=== PATIENT | female | born 1960 | race Caucasian/White ===

== ENCOUNTER → 2021-11-13 09:48 | Outpatient (CLI) | payer OTHER, SELFPAY ==
--- NOTE | 2021-11-13 | DI.MG.S_ITS ---
BILATERAL DIGITAL SCREENING MAMMOGRAM 3D/2D WITH CAD: 11/13/2021 CLINICAL: Routine screening. Comparison is made to exams dated: 10/21/2018 mammogram, 09/17/2017 mammogram, and 07/31/2016 mammogram - outside location. The tissue of both breasts is predominantly fatty. Current study was also evaluated with a Computer Aided Detection (CAD) system. No significant masses, calcifications, or other findings are seen in either breast. There has been no significant interval change. IMPRESSION: NEGATIVE There is no mammographic evidence of malignancy. A 1 year screening mammogram is recommended. This exam was interpreted at Station ID: [id number]. NOTE: For mammograms, a report in lay terms will be sent to the patient. Approximately 15% of breast malignancies will not be visualized mammographically. In the management of a palpable breast mass, a negative mammogram must not discourage biopsy of a clinically suspicious lesion. Electronically Signed By: Luis Carlos Echavarria acr/penrad:11/13/2021 10:31:31 copy to: ERIC GIBSON letter sent: Normal Exam ACR BI-RADS Category 1: Negative [id number]
== END ==
PROVIDERS: PCP Family Medicine; Referring Provider Specialist; Visit Provider Specialist
DX: Z12.31 Encounter for screening mammogram for malignant neoplasm of breast (principal)
CPT/HCPCS: 77063; 77067

== ENCOUNTER → 2022-12-06 09:45 | Outpatient (CLI) | payer OTHER, SELFPAY ==
--- NOTE | 2022-12-06 09:46 | DI.MG.S_ITS ---
BILATERAL DIGITAL SCREENING MAMMOGRAM 3D/2D WITH CAD: 12/06/2022 CLINICAL: Routine screening. Comparison is made to exams dated: 11/13/2021 mammogram - [facility], 10/21/2018 mammogram, and 09/17/2017 mammogram - outside location. There are scattered areas of fibroglandular density in both breasts (category b / 25%-50% glandular tissue). Current study was also evaluated with a Computer Aided Detection (CAD) system. No significant masses, calcifications, or other findings are seen in either breast. There has been no significant interval change. IMPRESSION: NEGATIVE There is no mammographic evidence of malignancy. A 1 year screening mammogram is recommended. Based on the Tyrer Cuzick model (a risk assessment model) the patient's lifetime risk is 8.5% and her 10 year risk is 3.8%. According to the ACR, ACS, and NCCN guidelines, an annual breast MRI exam along with mammogram is recommended if the patient's lifetime risk is 20% or greater. This exam was interpreted at Station ID: [id number]. NOTE: For mammograms, a report in lay terms will be sent to the patient. Approximately 15% of breast malignancies will not be visualized mammographically. In the management of a palpable breast mass, a negative mammogram must not discourage biopsy of a clinically suspicious lesion. Electronically Signed By: Dick jaimes/chuck:12/06/2022 14:32:40 copy to: ERIC GIBSON letter sent: Normal Exam ACR BI-RADS Category 1: Negative [id number]
== END ==
PROVIDERS: PCP Family Medicine; Referring Provider Family Medicine; Visit Provider Family Medicine
DX: Z12.31 Encounter for screening mammogram for malignant neoplasm of breast (principal)
CPT/HCPCS: 77063; 77067

== ENCOUNTER → 2023-12-15 11:27 | Outpatient (CLI) | payer OTHER, SELFPAY ==
--- NOTE | 2023-12-15 11:31 | DI.RAD.S_ITS ---
PROCEDURE: XR HIP W PEL IF DONE LT 2V INDICATIONS: Left hip pain TECHNIQUE: 2 views of the hip were acquired. COMPARISON: None. FINDINGS: Bones: No fractures or dislocations. No suspicious bony lesions. The visualized pelvic ring appears intact. Mild degenerative changes of the lower lumbar spine and bilateral SI joints. Soft tissues: No suspicious soft tissue calcifications or masses. IMPRESSION: 1. No acute bony abnormality. If there is high clinical suspicion for a radiographically occult fracture, recommend cross-sectional imaging for further evaluation. 2. Mild bilateral hip osteoarthritis, symmetric. Dictated by: Yasir Lopes M.D. on 12/15/2023 at 19:58 Approved by: Yasir Lopes M.D. on 12/15/2023 at 19:59
== END ==
LOC: DI 11:30
PROVIDERS: Family Provider Family Medicine; PCP Family Medicine; Referring Provider Nurse Practitioner Family; Visit Provider Nurse Practitioner Family
DX: M16.0 Bilateral primary osteoarthritis of hip (principal); M25.552 Pain in left hip
CPT/HCPCS: 73502

== ENCOUNTER → 2024-02-08 07:56 | Outpatient (CLI) | payer OTHER, SELFPAY ==
--- NOTE | 2024-02-08 07:56 | DI.MG.S_ITS ---
BILATERAL DIGITAL SCREENING MAMMOGRAM 3D/2D WITH CAD: 02/08/2024 CLINICAL: Routine screening. Family history of breast cancer. Comparison is made to exams dated: 12/06/2022 mammogram, 11/13/2021 mammogram - [facility], and 10/21/2018 mammogram - outside location. There are scattered areas of fibroglandular density in both breasts (category b / 25%-50% glandular tissue). Current study was also evaluated with a Computer Aided Detection (CAD) system. No significant masses, calcifications, or other findings are seen in either breast. There has been no significant interval change. IMPRESSION: NEGATIVE There is no mammographic evidence of malignancy. A 1 year screening mammogram is recommended. Based on the Tyrer Cuzick model (a risk assessment model) the patient's lifetime risk is 7.9% and her 10 year risk is 3.8%. According to the ACR, ACS, and NCCN guidelines, an annual breast MRI exam along with mammogram is recommended if the patient's lifetime risk is 20% or greater. This exam was interpreted at Station ID: [id number]. NOTE: For mammograms, a report in lay terms will be sent to the patient. Approximately 15% of breast malignancies will not be visualized mammographically. In the management of a palpable breast mass, a negative mammogram must not discourage biopsy of a clinically suspicious lesion. Electronically Signed By: Modesta Jones M.D., Ph.D. alyssa/chuck:02/10/2024 22:02:37 copy to: ERIC GIBSON letter sent: Normal Exam ACR BI-RADS Category 1: Negative [id number]
== END ==
LOC: MAMMO 07:56
PROVIDERS: Family Provider Family Medicine; PCP Family Medicine; Referring Provider Family Medicine; Visit Provider Family Medicine
DX: Z12.31 Encounter for screening mammogram for malignant neoplasm of breast (principal); Z80.3 Family history of malignant neoplasm of breast; R92.323 Mammographic fibroglandular density, bilateral breasts
CPT/HCPCS: 77063; 77067

== ENCOUNTER 2024-02-27 09:45 | Outpatient (RCR) | payer OTHER, SELFPAY ==
--- NOTE | 2023-12-12 17:53 | PT.OIE ---
Current Diagnoses Low back pain, unspecified (12/12/23) Muscle weakness (generalized) (12/12/23) Abnormal posture (12/12/23) Past Medical History (Last Updated 01/29/22 @ 14:36 by Thierno Wilhelm MD) Depression Hypertension Visit Care Team Role Provider Type Thierno Wilhelm MD Family Provider Physician Primary Care Provider Specialty: [facility] Practice Address: [address] [place] [address], [id number] Email: [email or web address] YANNA Elmore Attending Provider Advanced Cupola Charger Insulation Referring Provider Specialty: [facility] Address: [address] [place] [address], [address] Phone: Fax: Email: [email or web address] [facility] Initial Evaluation PT-OP-A Visit Information Start: 12/12/23 08:12 Freq: Status: Active Protocol: Document 12/12/23 08:20 LRN (Rec: 12/12/23 09:11 LRN [id number]) Out-Patient Physical Therapy Visit Information Visit Information Visit Type Initial Evaluation Visit Start Time 08:20 Visit Stop Time 09:08 Visit Number 1 Evaluation Information Evaluation Date 12/12/23 Precautions Precautions Depression controlled by meds. PT-OP-B Current Condition Start: 12/12/23 08:12 Freq: Status: Active Protocol: Document 12/12/23 08:20 LRN (Rec: 12/12/23 09:11 LRN [id number]) Current Condition History of Current Condition Onset Date 1 month ago Current Complaints Constant pn down the lateral LLE, worse in sitting, better standing/walking History of Current Condition Pt states she woke in the middle of the night with the L posterior deep hip pain that was pressent intermittently; then 3 wks later during the night she felt the pain down the lateral LLE that she states feels like a constant tera horse. Yesterday the pain became constant. She has been taking IBP (works at [employer]) every other day but doesn't feel it is helpful. She is now taking ms relaxors that helps her to get 3 hrs of sleep, then some sleep every hour. States it is more comfortable moving & walking rather than sitting. Prior Treatments and Tests IBP, now taking ms relaxors. Future Testing and Treatments Planned None Developmental History Developmental History Vaginal births: x 3, wo complications (reclined on birthing table). With first born child 30 yrs ago had R LE occasional pain. PMH: fx'd R lower leg above ankle age 50, L torn knee cartilage over 25 yrs ago. Treatment Goals Patient/Caregiver Goals Pt goal: Be able to sleep through the night. Be able to sit on plane ride to [facility] (6 hrs). Personal Factors Other Personal Factors That May Effect Depression controlled with Therapy/Recovery meds, works at a [employer] . 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 Pain Location Details L lateral hip joint anteriorly and posterior hip/gluteals Intensity 7 Scale Used Numeric (0 - 10) Description Aching,Sharp PT-OP-G Mobility & Gait Start: 12/12/23 08:12 Freq: Status: Active Protocol: Document 12/12/23 08:20 LRN (Rec: 12/12/23 09:11 LRN [id number]) OP Mobility Evaluation Bed Mobility Rolling L hip/LE pain rolling in bed Supine to and from Sit L hip/LE pain rolling in bed PT-OP-H Neuro Start: 12/12/23 08:12 Freq: Status: Active Protocol: Document 12/12/23 08:20 LRN (Rec: 12/12/23 09:11 LRN [id number]) Sensation Evaluation Gross Sensation Gross Sensation WNL Deep Tendon Reflex & Clonus Assessment Deep Tendon Reflex Bilateral Achilles Deep Tendon Reflex 0 Absent Right Patellar Deep Tendon Reflex 3+ Normal But Brisk Left Patellar Deep Tendon Reflex 2+ Normal PT-OP-J Posture/Palpation/Skin Start: 12/12/23 08:12 Freq: Status: Active Protocol: Document 12/12/23 08:20 LRN (Rec: 12/12/23 09:11 LR [id number]) Posture Evaluation Position Standing Head/C-Spine Posture Forward Head L-Spine Posture Increased Lordosis,Shifted Left Shoulder Posture (L) Elevated Arm Posture (L) Internally Rotated,(R) Internally Rotated Weight Distribution Weight Shifted Right Knee Posture (L) Genu Valgus,(R) Genu Valgus,(L) Genu Recurvatum Foot Arch (L) Medium Arch,(R) Low Arch Comments Posture Comments Dowagers hump, Flattened mid thoracic, mild C-curve lumbar spine w/apex on L, mild valgus of knees. Mild L Genu Recurvatum. Palpation Assessment Location LE's at ankles Palpation Location R LE: Sup>Long sit moves long > equal length. Palpation Details L LE: Sup> long sit moves short > equal length (L innom Posterior rot, R innom anterior rot). Supine: high L ASIS, L Ischial tuberosity is inferior (L innom Knitter Helper rot). Sacrum & trunk L rotated, L hip posterior ms - soft tissue tightness. PT-OP-K Range of Motion Start: 12/12/23 08:12 Freq: Status: Active Protocol: Document 12/12/23 08:20 LRN (Rec: 12/12/23 09:11 LR [id number]) Lumbar Spine Range of Motion Lumbar Spine Active Degrees Testing Position Standing Flexion 93 Extension 12 Rotation Left 15 Rotation Right 15 Lateral Flexion Left 15 Lateral Flexion Right 15 Comments Pain flexion Hip Goniometric Range of Motion Hip Right Passive Straight Leg Raise 100 Abduction 40 Internal Rotation 25 External Rotation 55 Left Passive Straight Leg Raise 90 Abduction 40 Internal Rotation 30 External Rotation 60 PT-OP-L Special Tests Start: 12/12/23 08:12 Freq: Status: Active Protocol: Document 12/12/23 08:20 LRN (Rec: 12/12/23 09:11 LR [id number]) Special Tests Lumbar Spine Special Tests Vertical Spine Loading Test Results - Slump Test Results 1 bilaterally Straight Leg Raise Test Results - bilaterally Compression Test Results - Hip Special Tests Leg Length Test Test Results + Distraction Test Test Results -LLE Lateral Compression Test Results - LLE Posterior Labral Test Test Results - Anterior Labral Test Test Results - Log Roll Test Test Results - LLE Stinchfield Resisted Hip Flexion Test Results + LLE ANDRZEJ Test Results + left LE PT-OP-M Strength Start: 12/12/23 08:12 Freq: Status: Active Protocol: Document 12/12/23 08:20 LRN (Rec: 12/12/23 09:11 LRN [id number]) Trunk Strength Trunk Manual Muscle Testing Flexion 3+ Fair+ Extension 3+ Fair+ Rotation Left 3+ Fair+ Rotation Right 3+ Fair+ Hip Strength Hip Manual Muscle Testing Right Comments Hip strength is 5/5. Left Flexion (L2) 3 Fair Abduction 4+ Good+ Internal Rotation 3 Fair Comments Hip strength is 5/5 except as indicated above. PT-OP-Q Treatments Start: 12/12/23 08:12 Freq: Status: Active Protocol: Document 12/12/23 08:20 LRN (Rec: 12/12/23 09:11 LRN [id number]) Manual Therapy Treatment Joint Mobilizations R innominate Joint MFR to correct R posteriorly rotated/L anteriorly rot innominate Direction Resisted hip AD & R hip flexion Body Position Supine Reps/Duration 3' Self-Care/Home Management Treatment Education Other Education Discussed results of evaluation, goals, and plan of care (POC) with pt, discussed attendance/cx/dns policy; pt agreeable to goals, attendance /cx/dns policy and POC. Activities Self-Care/Home Management Activities Verbal instructions given for self correction of pelvic obliquity of resisted hip flexion and education in self assesment of leg length difference. Pt I/S in proper posturing of equal weightbearing through LE 's in sitting and standing and with transfers. Pt given verbal I/S and visually shown posturing. PT-OP-T Assessment and Plan Start: 12/12/23 08:12 Freq: Status: Active Protocol: Document 12/12/23 08:20 LRN (Rec: 12/12/23 09:11 LRN [id number]) Physical Therapy Assessment Rehab Potential Rehabilitation Potential Good Evaluation Complexity Number of Personal Factors/Comorbidities 1-2 Number of Body Systems Impaired 4 or More Clinical Presentation at Evaluation Evolving Impairments Impairments Activity Tolerance,Functional Activities,Pain,Posture,ROM, Soft Tissue Mobility,Strength, Transfers Goals Three Impairment Pt is not able to tolerate sitting due to L sciatic pain Impairment Pelvic obliquity: L innom anterior rot/R innom posterior rot. Short Term Goal (STG) Pt will be educated in proper sitting posture with normal pelvic positioning (correct L innom anterior rot/R innom posterior rot). STG Duration 5 wks-01/17/24 Alf Goal (LTG) Pt will be able to sit for > 1 -2 hrs at a time to be able to tolerated a plane ride to [facility] (6 hrs). LTG Duration 12 wks-03/06/24 Two Impairment L Sciatic pain interrupting pt sleeping ability Impairment Pt was able to sleep through the night, 3-4 hrs at a time. Short Term Goal (STG) Pt will be educated in best practice positioning and posture corrections to relieve L sciatic pain. STG Duration 3 wks-01/03/24 Admin Asst Goal (LTG) Pt will be able to sleep 3-4 hrs through the night without interruptions due to L LE pain . LTG Duration 12 wks-03/06/24 One Impairment Pt lacks appropriate self care HEP. Short Term Goal (STG) Pt will be educated in log roll transfers, & proper body mechanics for ADLs. STG Duration 2 wks-12/27/23 Alf Goal (LTG) Pt will be independent in an effective self care HEP for pelvic/core/hip strengthening and mobility ex's. LTG Duration 12 wks-03/06/24 Assessment Summary Assessment Pt is a 63 yo female who presents with SIJ dysfunction (L innom anterior rot/R innom posterior rot) with pelvic instability, L sciatic pain, soft tissue tightness of L gluteal & L/S paraspinal L>R muscle, and decr'd core/hip strength. Transfers trng education is needed as well as correction of her pelvic obliquity and pt education in self assessment/treatment and program of stabilization and LE/trunk mobility and strengthening exercise. She may need gait training to correct gait mechanics after pelvic correction. The patient will benefit from skilled physical therapy to work towards achieving the above stated goals. Physical Therapy Plan Frequency and Duration Frequency of Treatment 2x/Week Duration of treatment (weeks) 12 Plan of Care Start Date 12/12/23 Plan of Care End Date 03/06/24 Therapeutic Interventions Therapeutic Interventions Home Exercise Program,Joint Mobilizations,Manual Therapy, Neuromuscular Re-education, Self-Care/Home Management,Soft Tissue Mobilization,Taping, Therapeutic Activities, Therapeutic Exercises Modalities Electric Stimulation Next Visit Focus/Plan Next Note Type Treatment Note Next Visit Plan Next: Assess Special Test: Moreno test. Assess response to correction of R innom post rot. If needed try correction for L innom anterior rot. Assess gait and transfer mechanics (wbing) and educate in log roll transfers, & proper body mechanics for ADLs . POC: Manual therapy/JMT to Normalize pelvic position and stabilize; correct sacral/ lumbar spine L rotation and stabilize; STM to normalize left hip and L>R L/S paraspinal ms tension, and improve core/hip strength. Modalities if needed for ms relaxation and pain management .
--- NOTE | 2023-12-12 17:56 | PT.OPPOC ---
Physical, Occupational & Speech Therapy At [facility] Current Diagnoses Low back pain, unspecified (12/12/23) Muscle weakness (generalized) (12/12/23) Abnormal posture (12/12/23) Visit Care Team Role Provider Type Thierno Wilhelm MD Family Provider Physician Primary Care Provider Specialty: [facility] Address: [address] [place] [address], [address] Email: [email or web address] YANNA Elmore Attending Provider Advanced Air Traffic Control Specialist Referring Provider Specialty: [facility] Address: [address] [place] [address], [place], [address] Phone: Fax: Email: [email or web address] Plan Of Care PT-OP-T Assessment and Plan Start: 12/12/23 08:12 Freq: Status: Active Protocol: Document 12/12/23 08:20 LRN (Rec: 12/12/23 09:11 LRN [id number]) Physical Therapy Assessment Rehab Potential Rehabilitation Potential Good Evaluation Complexity Number of Personal Factors/Comorbidities 1-2 Number of Body Systems Impaired 4 or More Clinical Presentation at Evaluation Evolving Impairments Impairments Activity Tolerance,Functional Activities,Pain,Posture,ROM, Soft Tissue Mobility,Strength, Transfers Goals Three Impairment Pt is not able to tolerate sitting due to L sciatic pain Impairment Pelvic obliquity: L innom anterior rot/R innom posterior rot. Short Term Goal (STG) Pt will be educated in proper sitting posture with normal pelvic positioning (correct L innom anterior rot/R innom posterior rot). STG Duration 5 wks-01/17/24 Paleology Teacher Goal (LTG) Pt will be able to sit for > 1 -2 hrs at a time to be able to tolerated a plane ride to [facility] (6 hrs). LTG Duration 12 wks-03/06/24 Two Impairment L Sciatic pain interrupting pt sleeping ability Impairment Pt was able to sleep through the night, 3-4 hrs at a time. Short Term Goal (STG) Pt will be educated in best practice positioning and posture corrections to relieve L sciatic pain. STG Duration 3 wks-01/03/24 Halfway Goal (LTG) Pt will be able to sleep 3-4 hrs through the night without interruptions due to L LE pain . LTG Duration 12 wks-03/06/24 One Impairment Pt lacks appropriate self care HEP. Short Term Goal (STG) Pt will be educated in log roll transfers, & proper body mechanics for ADLs. STG Duration 2 wks-12/27/23 Paleology Teacher Goal (LTG) Pt will be independent in an effective self care HEP for pelvic/core/hip strengthening and mobility ex's. LTG Duration 12 wks-03/06/24 Assessment Summary Assessment Pt is a 63 yo female who presents with SIJ dysfunction (L innom anterior rot/R innom posterior rot) with pelvic instability, L sciatic pain, soft tissue tightness of L gluteal & L/S paraspinal L>R muscle, and decr'd core/hip strength. Transfers trng education is needed as well as correction of her pelvic obliquity and pt education in self assessment/treatment and program of stabilization and LE/trunk mobility and strengthening exercise. She may need gait training to correct gait mechanics after pelvic correction. The patient will benefit from skilled physical therapy to work towards achieving the above stated goals. Physical Therapy Plan Frequency and Duration Frequency of Treatment 2x/Week Duration of treatment (weeks) 12 Plan of Care Start Date 12/12/23 Plan of Care End Date 03/06/24 Therapeutic Interventions Therapeutic Interventions Home Exercise Program,Joint Mobilizations,Manual Therapy, Neuromuscular Re-education, Self-Care/Home Management,Soft Tissue Mobilization,Taping, Therapeutic Activities, Therapeutic Exercises Modalities Electric Stimulation Next Visit Focus/Plan Next Note Type Treatment Note Next Visit Plan Next: Assess Special Test: Moreno test. Assess response to correction of R innom post rot. If needed try correction for L innom anterior rot. Assess gait and transfer mechanics (wbing) and educate in log roll transfers, & proper body mechanics for ADLs . POC: Manual therapy/JMT to Normalize pelvic position and stabilize; correct sacral/ lumbar spine L rotation and stabilize; STM to normalize left hip and L>R L/S paraspinal ms tension, and improve core/hip strength. Modalities if needed for ms relaxation and pain management . Plan of Care Dates Plan of Care Start Date 12/12/23 Plan of Care End Date 03/06/24 Electronically Signed by: Aniyah Miller, PT 12/13/231954 If you are in agreement with this Plan of Care, please return a signed and dated copy. I have reviewed this Plan of Care and certify that the skilled therapy services above are required to meet the patient?s needs. Physician Signature Date Printed Name and Credentials Clinical Instructor Signature Printed Name and Credentials
--- NOTE | 2023-12-17 16:14 | PT.OTN ---
Current Diagnoses Low back pain, unspecified (12/17/23) Muscle weakness (generalized) (12/17/23) Abnormal posture (12/17/23) Physical Therapy Treatment Note PT-OP-A Visit Information Start: 12/12/23 08:12 Freq: Status: Active Protocol: Document 12/17/23 13:03 LRN (Rec: 12/17/23 13:53 LRN [id number]) Out-Patient Physical Therapy Visit Information Visit Information Visit Type Treatment Note Visit Start Time 13:03 Visit Stop Time 13:50 Visit Number 2 Evaluation Information Evaluation Date 12/12/23 Precautions Precautions Depression controlled by meds. PT-OP-B Current Condition Start: 12/12/23 08:12 Freq: Status: Active Protocol: Document 12/12/23 08:20 LRN (Rec: 12/12/23 09:11 LRN [id number]) Current Condition History of Current Condition Onset Date 1 month ago Current Complaints Constant pn down the lateral LLE, worse in sitting, better standing/walking History of Current Condition Pt states she woke in the middle of the night with the L posterior deep hip pain that was pressent intermittently; then 3 wks later during the night she felt the pain down the lateral LLE that she states feels like a constant tera horse. Yesterday the pain became constant. She has been taking IBP (works at [employer]) every other day but doesn't feel it is helpful. She is now taking ms relaxors that helps her to get 3 hrs of sleep, then some sleep every hour. States it is more comfortable moving & walking rather than sitting. Prior Treatments and Tests IBP, now taking ms relaxors. Future Testing and Treatments Planned None Developmental History Developmental History Vaginal births: x 3, wo complications (reclined on birthing table). With first born child 30 yrs ago had R LE occasional pain. PMH: fx'd R lower leg above ankle age 50, L torn knee cartilage over 25 yrs ago. Treatment Goals Patient/Caregiver Goals Pt goal: Be able to sleep through the night. Be able to sit on plane ride to [facility] (6 hrs). Personal Factors Other Personal Factors That May Effect Depression controlled with Therapy/Recovery meds, works at a [employer] . PT-OP-C Subjective Start: 12/12/23 08:12 Freq: Status: Active Protocol: Document 12/17/23 13:03 LRN (Rec: 12/17/23 13:53 LRN [id number]) OP-PT Subjective Patient Comments Patient Comments Worse, can't get sleep, max is 3 hrs, then hourly. Trying not to sleep on stomach (prone holds head to left). LLB painful. Has been sleeping on R side normally w/pillow between knees. PT-OP-G Mobility & Gait Start: 12/12/23 08:12 Freq: Status: Active Protocol: Document 12/12/23 08:20 LRN (Rec: 12/12/23 09:11 LRN [id number]) OP Mobility Evaluation Bed Mobility Rolling L hip/LE pain rolling in bed Supine to and from Sit L hip/LE pain rolling in bed PT-OP-H Neuro Start: 12/12/23 08:12 Freq: Status: Active Protocol: Document 12/12/23 08:20 LRN (Rec: 12/12/23 09:11 LRN [id number]) Sensation Evaluation Gross Sensation Gross Sensation WNL Deep Tendon Reflex & Clonus Assessment Deep Tendon Reflex Bilateral Achilles Deep Tendon Reflex 0 Absent Right Patellar Deep Tendon Reflex 3+ Normal But Brisk Left Patellar Deep Tendon Reflex 2+ Normal PT-OP-J Posture/Palpation/Skin Start: 12/12/23 08:12 Freq: Status: Active Protocol: Document 12/12/23 08:20 LRN (Rec: 12/12/23 09:11 LRN [id number]) Posture Evaluation Position Standing Head/C-Spine Posture Forward Head L-Spine Posture Increased Lordosis,Shifted Left Shoulder Posture (L) Elevated Arm Posture (L) Internally Rotated,(R) Internally Rotated Weight Distribution Weight Shifted Right Knee Posture (L) Genu Valgus,(R) Genu Valgus,(L) Genu Recurvatum Foot Arch (L) Medium Arch,(R) Low Arch Comments Posture Comments Dowagers hump, Flattened mid thoracic, mild C-curve lumbar spine w/apex on L, mild valgus of knees. Mild L Genu Recurvatum. Palpation Assessment Location LE's at ankles Palpation Location R LE: Sup>Long sit moves long > equal length. Palpation Details L LE: Sup> long sit moves short > equal length (L innom Posterior rot, R innom anterior rot). Supine: high L ASIS, L Ischial tuberosity is inferior (L innom Plant Electrician rot). Sacrum & trunk L rotated, L hip posterior ms - soft tissue tightness. PT-OP-K Range of Motion Start: 12/12/23 08:12 Freq: Status: Active Protocol: Document 12/12/23 08:20 LRN (Rec: 12/12/23 09:11 LRN [id number]) Lumbar Spine Range of Motion Lumbar Spine Active Degrees Testing Position Standing Flexion 93 Extension 12 Rotation Left 15 Rotation Right 15 Lateral Flexion Left 15 Lateral Flexion Right 15 Comments Pain flexion Hip Goniometric Range of Motion Hip Right Passive Straight Leg Raise 100 Abduction 40 Internal Rotation 25 External Rotation 55 Left Passive Straight Leg Raise 90 Abduction 40 Internal Rotation 30 External Rotation 60 PT-OP-L Special Tests Start: 12/12/23 08:12 Freq: Status: Active Protocol: Document 12/17/23 13:03 LRN (Rec: 12/17/23 16:14 LRN [id number]) Special Tests Hip Special Tests Moreno Test Results + bilateral Comments Mild hip flexor tightness bilaterally. PT-OP-M Strength Start: 12/12/23 08:12 Freq: Status: Active Protocol: Document 12/12/23 08:20 LRN (Rec: 12/12/23 09:11 LRN [id number]) Trunk Strength Trunk Manual Muscle Testing Flexion 3+ Fair+ Extension 3+ Fair+ Rotation Left 3+ Fair+ Rotation Right 3+ Fair+ Hip Strength Hip Manual Muscle Testing Right Comments Hip strength is 5/5. Left Flexion (L2) 3 Fair Abduction 4+ Good+ Internal Rotation 3 Fair Comments Hip strength is 5/5 except as indicated above. PT-OP-Q Treatments Start: 12/12/23 08:12 Freq: Status: Active Protocol: Document 12/17/23 13:03 LRN (Rec: 12/17/23 13:53 LRN [id number]) Therapeutic Exercises Supine Exercises TA heel slides Supine Exercise Name Pt palpating ASIS' to identify when loss of holding contraction Side bilateral Reps/Minutes 10' Comments Cued pt with PT hand under LB and v cuing given. TA tightening Supine Exercise Name Pt palpating ASIS' to identify when loss of holding contraction Reps/Minutes 10' Comments Cued that L TA was not holding and fatigues quicker Sidelying Exercises TA/Clamshell Side bilateral Reps/Minutes 10x each Comments Extra time taken for trng to obtain core stability w/leg lift Standing Exercises Hip flexor stretch Standing Exercise Name Knee on stool: much phys cuing for level A/P positioning of ASIS and PPT Side bilateral Reps/Minutes 8' Comments Extra time needed to obtain max tolerated & appropriate stretch Therapeutic Activity Therapeutic Activity Rolling Name TA tight w/Rolling side<>side Reps/Minutes 2' Comments Phys & v cuing needed to remind pt with rolling. Nighttime positioning Name [place] position training Reps/Minutes 8' Comments Sidelie: Cued pt put pillows for full support to leg (not just to knee) PT-OP-T Assessment and Plan Start: 12/12/23 08:12 Freq: Status: Active Protocol: Document 12/17/23 13:03 LRN (Rec: 12/17/23 13:53 LRN [id number]) Physical Therapy Assessment Goals Three Impairment Pt is not able to tolerate sitting due to L sciatic pain Impairment Pelvic obliquity: L innom anterior rot/R innom posterior rot. Short Term Goal (STG) Pt will be educated in proper sitting posture with normal pelvic positioning (correct L innom anterior rot/R innom posterior rot). 12/17/23: Supine correction of rotated L innominate. STG Duration 5 wks-01/17/24 progressed 05/31 Loan Servicing Specialist Goal (LTG) Pt will be able to sit for > 1 -2 hrs at a time to be able to tolerated a plane ride to [facility] (6 hrs). LTG Duration 12 wks-03/06/24 Two Impairment L Sciatic pain interrupting pt sleeping ability Impairment Pt was able to sleep through the night, 3-4 hrs at a time. Short Term Goal (STG) Pt will be educated in best practice positioning and posture corrections to relieve L sciatic pain. 12/17/23: Pt educated in best practice positioning for nighttime sleeping position. STG Duration 3 wks-01/03/24 progressed (need educ posture sitting/standing) Fdc Goal (LTG) Pt will be able to sleep 3-4 hrs through the night without interruptions due to L LE pain . LTG Duration 12 wks-03/06/24 One Impairment Pt lacks appropriate self care HEP. Short Term Goal (STG) Pt will be educated in log roll transfers, & proper body mechanics for ADLs. 12/17/23: Pt educted rolling in bed side<>side with core stabilized (TA tight). STG Duration 2 wks-12/27/23 progressed 12/17/23 Fdc Goal (LTG) Pt will be independent in an effective self care HEP for pelvic/core/hip strengthening and mobility ex's. 12/17/23: HEP: core stab of supine TA tight, TA/heel slide ; TA clamshell, & standing Iliopsoas stretch. LTG Duration 12 wks-03/06/24 progressed 12/17/23 Assessment Summary Assessment Pt is a 63 yo female who presented w/SIJ dysfunction (L innom anterior rot/R innom posterior rot) & pelvic instability, L sciatic pain, soft tissue tightness of L gluteal & L/S paraspinal L>R muscle, and decr'd core/hip strength. Today pt innominates are level to start . Fairly good understanding of ex's, but not able to stabilize core with heel slides and clamshell. Further core stab needed. Physical Therapy Plan Frequency and Duration Frequency of Treatment 2x/Week Duration of treatment (weeks) 12 Plan of Care Start Date 12/12/23 Plan of Care End Date 03/06/24 Next Visit Focus/Plan Next Note Type Treatment Note Next Visit Plan Next: If needed correction for L innom anterior rot. Assess gait and transfer mechanics (wbing) and educate in log roll transfers, & proper body mechanics for ADLs . POC: Manual therapy/JMT to Normalize pelvic position and stabilize; correct sacral/ lumbar spine L rotation and stabilize; STM to normalize left hip, improve hip flexor mobility and L>R L/S paraspinal ms tension, and improve core/hip strength. Modalities if needed for ms relaxation and pain management .
--- NOTE | 2023-12-17 16:17 | PT.OTN ---
Current Diagnoses Low back pain, unspecified (12/17/23) Muscle weakness (generalized) (12/17/23) Abnormal posture (12/17/23) Physical Therapy Treatment Note PT-OP-A Visit Information Start: 12/12/23 08:12 Freq: Status: Active Protocol: Document 12/17/23 13:03 LRN (Rec: 12/17/23 13:53 LRN [id number]) Out-Patient Physical Therapy Visit Information Visit Information Visit Type Treatment Note Visit Start Time 13:03 Visit Stop Time 13:50 Visit Number 2 Evaluation Information Evaluation Date 12/12/23 Precautions Precautions Depression controlled by meds. PT-OP-B Current Condition Start: 12/12/23 08:12 Freq: Status: Active Protocol: Document 12/12/23 08:20 LRN (Rec: 12/12/23 09:11 LRN [id number]) Current Condition History of Current Condition Onset Date 1 month ago Current Complaints Constant pn down the lateral LLE, worse in sitting, better standing/walking History of Current Condition Pt states she woke in the middle of the night with the L posterior deep hip pain that was pressent intermittently; then 3 wks later during the night she felt the pain down the lateral LLE that she states feels like a constant tera horse. Yesterday the pain became constant. She has been taking IBP (works at [employer]) every other day but doesn't feel it is helpful. She is now taking ms relaxors that helps her to get 3 hrs of sleep, then some sleep every hour. States it is more comfortable moving & walking rather than sitting. Prior Treatments and Tests IBP, now taking ms relaxors. Future Testing and Treatments Planned None Developmental History Developmental History Vaginal births: x 3, wo complications (reclined on birthing table). With first born child 30 yrs ago had R LE occasional pain. PMH: fx'd R lower leg above ankle age 50, L torn knee cartilage over 25 yrs ago. Treatment Goals Patient/Caregiver Goals Pt goal: Be able to sleep through the night. Be able to sit on plane ride to [facility] (6 hrs). Personal Factors Other Personal Factors That May Effect Depression controlled with Therapy/Recovery meds, works at a [employer] . PT-OP-C Subjective Start: 12/12/23 08:12 Freq: Status: Active Protocol: Document 12/17/23 13:03 LRN (Rec: 12/17/23 13:53 LRN [id number]) OP-PT Subjective Patient Comments Patient Comments Worse, can't get sleep, max is 3 hrs, then hourly. Trying not to sleep on stomach (prone holds head to left). LLB painful. Has been sleeping on R side normally w/pillow between knees. PT-OP-G Mobility & Gait Start: 12/12/23 08:12 Freq: Status: Active Protocol: Document 12/12/23 08:20 LRN (Rec: 12/12/23 09:11 LRN [id number]) OP Mobility Evaluation Bed Mobility Rolling L hip/LE pain rolling in bed Supine to and from Sit L hip/LE pain rolling in bed PT-OP-H Neuro Start: 12/12/23 08:12 Freq: Status: Active Protocol: Document 12/12/23 08:20 LRN (Rec: 12/12/23 09:11 LRN [id number]) Sensation Evaluation Gross Sensation Gross Sensation WNL Deep Tendon Reflex & Clonus Assessment Deep Tendon Reflex Bilateral Achilles Deep Tendon Reflex 0 Absent Right Patellar Deep Tendon Reflex 3+ Normal But Brisk Left Patellar Deep Tendon Reflex 2+ Normal PT-OP-J Posture/Palpation/Skin Start: 12/12/23 08:12 Freq: Status: Active Protocol: Document 12/12/23 08:20 LRN (Rec: 12/12/23 09:11 LRN [id number]) Posture Evaluation Position Standing Head/C-Spine Posture Forward Head L-Spine Posture Increased Lordosis,Shifted Left Shoulder Posture (L) Elevated Arm Posture (L) Internally Rotated,(R) Internally Rotated Weight Distribution Weight Shifted Right Knee Posture (L) Genu Valgus,(R) Genu Valgus,(L) Genu Recurvatum Foot Arch (L) Medium Arch,(R) Low Arch Comments Posture Comments Dowagers hump, Flattened mid thoracic, mild C-curve lumbar spine w/apex on L, mild valgus of knees. Mild L Genu Recurvatum. Palpation Assessment Location LE's at ankles Palpation Location R LE: Sup>Long sit moves long > equal length. Palpation Details L LE: Sup> long sit moves short > equal length (L innom Posterior rot, R innom anterior rot). Supine: high L ASIS, L Ischial tuberosity is inferior (L innom Communications Marketing Intern rot). Sacrum & trunk L rotated, L hip posterior ms - soft tissue tightness. PT-OP-K Range of Motion Start: 12/12/23 08:12 Freq: Status: Active Protocol: Document 12/12/23 08:20 LRN (Rec: 12/12/23 09:11 LRN [id number]) Lumbar Spine Range of Motion Lumbar Spine Active Degrees Testing Position Standing Flexion 93 Extension 12 Rotation Left 15 Rotation Right 15 Lateral Flexion Left 15 Lateral Flexion Right 15 Comments Pain flexion Hip Goniometric Range of Motion Hip Right Passive Straight Leg Raise 100 Abduction 40 Internal Rotation 25 External Rotation 55 Left Passive Straight Leg Raise 90 Abduction 40 Internal Rotation 30 External Rotation 60 PT-OP-L Special Tests Start: 12/12/23 08:12 Freq: Status: Active Protocol: Document 12/17/23 13:03 LRN (Rec: 12/17/23 16:14 LRN [id number]) Special Tests Hip Special Tests Moreno Test Results + bilateral Comments Mild hip flexor tightness bilaterally. PT-OP-M Strength Start: 12/12/23 08:12 Freq: Status: Active Protocol: Document 12/12/23 08:20 LRN (Rec: 12/12/23 09:11 LRN [id number]) Trunk Strength Trunk Manual Muscle Testing Flexion 3+ Fair+ Extension 3+ Fair+ Rotation Left 3+ Fair+ Rotation Right 3+ Fair+ Hip Strength Hip Manual Muscle Testing Right Comments Hip strength is 5/5. Left Flexion (L2) 3 Fair Abduction 4+ Good+ Internal Rotation 3 Fair Comments Hip strength is 5/5 except as indicated above. PT-OP-Q Treatments Start: 12/12/23 08:12 Freq: Status: Active Protocol: Document 12/17/23 13:03 LRN (Rec: 12/17/23 13:53 LRN [id number]) Therapeutic Exercises Supine Exercises TA heel slides Supine Exercise Name Pt palpating ASIS' to identify when loss of holding contraction Side bilateral Reps/Minutes 10' Comments Cued pt with PT hand under LB and v cuing given. TA tightening Supine Exercise Name Pt palpating ASIS' to identify when loss of holding contraction Reps/Minutes 10' Comments Cued that L TA was not holding and fatigues quicker Sidelying Exercises TA/Clamshell Side bilateral Reps/Minutes 10x each Comments Extra time taken for trng to obtain core stability w/leg lift Standing Exercises Hip flexor stretch Standing Exercise Name Knee on stool: much phys cuing for level A/P positioning of ASIS and PPT Side bilateral Reps/Minutes 8' Comments Extra time needed to obtain max tolerated & appropriate stretch Therapeutic Activity Therapeutic Activity Rolling Name TA tight w/Rolling side<>side Reps/Minutes 2' Comments Phys & v cuing needed to remind pt with rolling. Nighttime positioning Name [place] position training Reps/Minutes 8' Comments Sidelie: Cued pt put pillows for full support to leg (not just to knee) Self-Care/Home Management Treatment Education Patient Education Home Exercise Program Activities Self-Care/Home Management Activities Issued & reviewed HEP: TA, TA clamshell, TA heel slides, standing hip flexor stretch. PT-OP-T Assessment and Plan Start: 12/12/23 08:12 Freq: Status: Active Protocol: Document 12/17/23 13:03 LRN (Rec: 12/17/23 13:53 LRN [id number]) Physical Therapy Assessment Goals Three Impairment Pt is not able to tolerate sitting due to L sciatic pain Impairment Pelvic obliquity: L innom anterior rot/R innom posterior rot. Short Term Goal (STG) Pt will be educated in proper sitting posture with normal pelvic positioning (correct L innom anterior rot/R innom posterior rot). 12/17/23: Supine correction of rotated L innominate. STG Duration 5 wks-01/17/24 progressed 05/31 Tablet Tester Goal (LTG) Pt will be able to sit for > 1 -2 hrs at a time to be able to tolerated a plane ride to [facility] (6 hrs). LTG Duration 12 wks-03/06/24 Two Impairment L Sciatic pain interrupting pt sleeping ability Impairment Pt was able to sleep through the night, 3-4 hrs at a time. Short Term Goal (STG) Pt will be educated in best practice positioning and posture corrections to relieve L sciatic pain. 12/17/23: Pt educated in best practice positioning for nighttime sleeping position. STG Duration 3 wks-01/03/24 progressed (need educ posture sitting/standing) [facility] Goal (LTG) Pt will be able to sleep 3-4 hrs through the night without interruptions due to L LE pain . LTG Duration 12 wks-03/06/24 One Impairment Pt lacks appropriate self care HEP. Short Term Goal (STG) Pt will be educated in log roll transfers, & proper body mechanics for ADLs. 12/17/23: Pt educted rolling in bed side<>side with core stabilized (TA tight). STG Duration 2 wks-12/27/23 progressed 12/17/23 Tablet Tester Goal (LTG) Pt will be independent in an effective self care HEP for pelvic/core/hip strengthening and mobility ex's. 12/17/23: HEP: core stab of supine TA tight, TA/heel slide ; TA clamshell, & standing Iliopsoas stretch. LTG Duration 12 wks-03/06/24 progressed 12/17/23 Assessment Summary Assessment Pt is a 63 yo female who presented w/SIJ dysfunction (L innom anterior rot/R innom posterior rot) & pelvic instability, L sciatic pain, soft tissue tightness of L gluteal & L/S paraspinal L>R muscle, and decr'd core/hip strength. Today pt innominates are level to start . Fairly good understanding of ex's, but not able to stabilize core with heel slides and clamshell. Further core stab needed. Physical Therapy Plan Frequency and Duration Frequency of Treatment 2x/Week Duration of treatment (weeks) 12 Plan of Care Start Date 12/12/23 Plan of Care End Date 03/06/24 Next Visit Focus/Plan Next Note Type Treatment Note Next Visit Plan Next: If needed correction for L innom anterior rot. Assess gait and transfer mechanics (wbing) and educate in log roll transfers, & proper body mechanics for ADLs . POC: Manual therapy/JMT to Normalize pelvic position and stabilize; correct sacral/ lumbar spine L rotation and stabilize; STM to normalize left hip, improve hip flexor mobility and L>R L/S paraspinal ms tension, and improve core/hip strength. Modalities if needed for ms relaxation and pain management .
--- NOTE | 2023-12-19 13:48 | PT.OTN ---
Current Diagnoses Low back pain, unspecified (12/19/23) Muscle weakness (generalized) (12/19/23) Abnormal posture (12/19/23) Physical Therapy Treatment Note PT-OP-A Visit Information Start: 12/12/23 08:12 Freq: Status: Active Protocol: Document 12/19/23 13:02 LRN (Rec: 12/19/23 13:47 LRN [id number]) Out-Patient Physical Therapy Visit Information Visit Information Visit Type Treatment Note Visit Start Time 13:02 Visit Stop Time 13:43 Visit Number 3 Evaluation Information Evaluation Date 12/12/23 Precautions Precautions Depression controlled by meds. PT-OP-B Current Condition Start: 12/12/23 08:12 Freq: Status: Active Protocol: Document 12/12/23 08:20 LRN (Rec: 12/12/23 09:11 LRN [id number]) Current Condition History of Current Condition Onset Date 1 month ago Current Complaints Constant pn down the lateral LLE, worse in sitting, better standing/walking History of Current Condition Pt states she woke in the middle of the night with the L posterior deep hip pain that was pressent intermittently; then 3 wks later during the night she felt the pain down the lateral LLE that she states feels like a constant tera horse. Yesterday the pain became constant. She has been taking IBP (works at [employer]) every other day but doesn't feel it is helpful. She is now taking ms relaxors that helps her to get 3 hrs of sleep, then some sleep every hour. States it is more comfortable moving & walking rather than sitting. Prior Treatments and Tests IBP, now taking ms relaxors. Future Testing and Treatments Planned None Developmental History Developmental History Vaginal births: x 3, wo complications (reclined on birthing table). With first born child 30 yrs ago had R LE occasional pain. PMH: fx'd R lower leg above ankle age 50, L torn knee cartilage over 25 yrs ago. Treatment Goals Patient/Caregiver Goals Pt goal: Be able to sleep through the night. Be able to sit on plane ride to [facility] (6 hrs). Personal Factors Other Personal Factors That May Effect Depression controlled with Therapy/Recovery meds, works at a [employer] . PT-OP-C Subjective Start: 12/12/23 08:12 Freq: Status: Active Protocol: Document 12/19/23 13:02 LRN (Rec: 12/19/23 13:47 LRN [id number]) OP-PT Subjective Patient Comments Patient Comments Yesterday was prescribed GAbapentin and taken off ms relaxor. Slept well last night and woke due to bladder. Hurt and had to stretch before going back to bed and woke in R sidelie with L LBP. PT-OP-G Mobility & Gait Start: 12/12/23 08:12 Freq: Status: Active Protocol: Document 12/12/23 08:20 LRN (Rec: 12/12/23 09:11 LRN [id number]) OP Mobility Evaluation Bed Mobility Rolling L hip/LE pain rolling in bed Supine to and from Sit L hip/LE pain rolling in bed PT-OP-H Neuro Start: 12/12/23 08:12 Freq: Status: Active Protocol: Document 12/12/23 08:20 LRN (Rec: 12/12/23 09:11 LRN [id number]) Sensation Evaluation Gross Sensation Gross Sensation WNL Deep Tendon Reflex & Clonus Assessment Deep Tendon Reflex Bilateral Achilles Deep Tendon Reflex 0 Absent Right Patellar Deep Tendon Reflex 3+ Normal But Brisk Left Patellar Deep Tendon Reflex 2+ Normal PT-OP-J Posture/Palpation/Skin Start: 12/12/23 08:12 Freq: Status: Active Protocol: Document 12/12/23 08:20 LRN (Rec: 12/12/23 09:11 LRN [id number]) Posture Evaluation Position Standing Head/C-Spine Posture Forward Head L-Spine Posture Increased Lordosis,Shifted Left Shoulder Posture (L) Elevated Arm Posture (L) Internally Rotated,(R) Internally Rotated Weight Distribution Weight Shifted Right Knee Posture (L) Genu Valgus,(R) Genu Valgus,(L) Genu Recurvatum Foot Arch (L) Medium Arch,(R) Low Arch Comments Posture Comments Dowagers hump, Flattened mid thoracic, mild C-curve lumbar spine w/apex on L, mild valgus of knees. Mild L Genu Recurvatum. Palpation Assessment Location LE's at ankles Palpation Location R LE: Sup>Long sit moves long > equal length. Palpation Details L LE: Sup> long sit moves short > equal length (L innom Posterior rot, R innom anterior rot). 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 Sacrum & trunk L rotated, L hip posterior ms - soft tissue tightness. PT-OP-K Range of Motion Start: 12/12/23 08:12 Freq: Status: Active Protocol: Document 12/12/23 08:20 LRN (Rec: 12/12/23 09:11 LRN [id number]) Lumbar Spine Range of Motion Lumbar Spine Active Degrees Testing Position Standing Flexion 93 Extension 12 Rotation Left 15 Rotation Right 15 Lateral Flexion Left 15 Lateral Flexion Right 15 Comments Pain flexion Hip Goniometric Range of Motion Hip Right Passive Straight Leg Raise 100 Abduction 40 Internal Rotation 25 External Rotation 55 Left Passive Straight Leg Raise 90 Abduction 40 Internal Rotation 30 External Rotation 60 PT-OP-L Special Tests Start: 12/12/23 08:12 Freq: Status: Active Protocol: Document 12/17/23 13:03 LRN (Rec: 12/17/23 16:14 LRN [id number]) Special Tests Hip Special Tests Moreno Test Results + bilateral Comments Mild hip flexor tightness bilaterally. PT-OP-M Strength Start: 12/12/23 08:12 Freq: Status: Active Protocol: Document 12/12/23 08:20 LRN (Rec: 12/12/23 09:11 LRN [id number]) Trunk Strength Trunk Manual Muscle Testing Flexion 3+ Fair+ Extension 3+ Fair+ Rotation Left 3+ Fair+ Rotation Right 3+ Fair+ Hip Strength Hip Manual Muscle Testing Right Comments Hip strength is 5/5. Left Flexion (L2) 3 Fair Abduction 4+ Good+ Internal Rotation 3 Fair Comments Hip strength is 5/5 except as indicated above. PT-OP-Q Treatments Start: 12/12/23 08:12 Freq: Status: Active Protocol: Document 12/19/23 13:02 LRN (Rec: 12/19/23 13:47 LRN [id number]) Therapeutic Exercises Supine Exercises DKTC stretch Supine Exercise Name Verbal I/S. TA/hector BKFO Equipment Used Lev 2 TB Reps/Minutes 15x TA/bridge Supine Exercise Name Neutral spine positioning/TA/ bridge Reps/Minutes 10x Comments Pt needed rest after lifts due to ms cramping in R LE. TA heel slides Supine Exercise Name Pt palpating ASIS' to identify when loss of holding contraction Side bilateral Reps/Minutes 10' Comments Cued pt with PT hand under LB and v cuing given. Sidelying Exercises TA/Clamshell Side left Equipment Used Dowel behind SIJ's Reps/Minutes 10x, 5x each (10') Comments Extra time for trng keping core stable w/leg lift Sitting Exercises TA/Hector BKFO Equipment Used Lev 1 TB Reps/Minutes 15x Self-Care/Home Management Treatment Education Other Education Pt educated in proper sit posture with equal sitting on sit bones. Educated pt in equal wbing through LE's on sit<>stand. Activities Self-Care/Home Management Activities Issued HEP: SI dyfunction phase I (correction and stab with bridge and DKTC), and Progressive stability/core strengthening of 1. Pelvic Brace, 2. Knee out, 3.Leg slide. Lev 2 TB issued for HEP> PT-OP-T Assessment and Plan Start: 12/12/23 08:12 Freq: Status: Active Protocol: Document 12/19/23 13:02 LRN (Rec: 12/19/23 13:47 LRN [id number]) Physical Therapy Assessment Goals Three Impairment Pt is not able to tolerate sitting due to L sciatic pain Impairment Pelvic obliquity: L innom anterior rot/R innom posterior rot. Short Term Goal (STG) Pt will be educated in proper sitting posture with normal pelvic positioning (correct L innom anterior rot/R innom posterior rot). 12/17/23: Supine correction of rotated L innominate. 12/19/23: Pt self corrected L innomate rotation. Pt educated in proper sit posturing with normal pelvic positioning. STG Duration 5 wks-01/17/24 (12/19/23: MET GOAL) Shelter Goal (LTG) Pt will be able to sit for > 1 -2 hrs at a time to be able to tolerated a plane ride to [facility] (6 hrs). LTG Duration 12 wks-03/06/24 Two Impairment L Sciatic pain interrupting pt sleeping ability Impairment Pt was able to sleep through the night, 3-4 hrs at a time. Short Term Goal (STG) Pt will be educated in best practice positioning and posture corrections to relieve L sciatic pain. 12/17/23: Pt educated in best practice positioning for nighttime sleeping position. STG Duration 3 wks-01/03/24 progressed (need educ posture sitting/standing) Food Mixer Repairer Goal (LTG) Pt will be able to sleep 3-4 hrs through the night without interruptions due to L LE pain . 12/19/23: Pt able to sleep through the night w/o pain ( except for waking for bladder) after starting Gabapentin medication LTG Duration 12 wks-03/06/24 progressing 12/19/23 One Impairment Pt lacks appropriate self care HEP. Short Term Goal (STG) Pt will be educated in log roll transfers, & proper body mechanics for ADLs. 12/17/23: Pt educted rolling in bed side<>side with core stabilized (TA tight). STG Duration 2 wks-12/27/23 progressed 12/17/23 Food Mixer Repairer Goal (LTG) Pt will be independent in an effective self care HEP for pelvic/core/hip strengthening and mobility ex's. 12/17/23: HEP: core stab of supine TA tight, TA/heel slide ; TA clamshell, & standing Iliopsoas stretch. 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 Today she is reporting sleeping through the night, possibly due to new med of Gabapentin. She is self correcting her SIJ dysfunction and shows good understanding of new HEP. Physical Therapy Plan Frequency and Duration Frequency of Treatment 2x/Week Duration of treatment (weeks) 12 Plan of Care Start Date 12/12/23 Plan of Care End Date 03/06/24 Next Visit Focus/Plan Next Note Type Treatment Note Next Visit Plan If needed correction for L innom anterior rot. Next: Assess gait and transfer mechanics (wbing) and educate in log roll transfers, & proper body mechanics for ADLs . POC: Manual therapy/JMT to Normalize pelvic position and stabilize; correct sacral/ lumbar spine L rotation and stabilize; STM to normalize left hip, improve hip flexor mobility and L>R L/S paraspinal ms tension, and improve core/hip strength. Modalities if needed for ms relaxation and pain management .
--- NOTE | 2024-01-01 09:49 | PT.OTN ---
Current Diagnoses Low back pain, unspecified (01/01/24) Muscle weakness (generalized) (01/01/24) Abnormal posture (01/01/24) Physical Therapy Treatment Note PT-OP-A Visit Information Start: 12/12/23 08:12 Freq: Status: Active Protocol: Document 01/01/24 08:04 AB (Rec: 01/01/24 09:47 AB [id number]) Out-Patient Physical Therapy Visit Information Visit Information Visit Type Treatment Note Visit Number 4 Number of DINING SERVICE WORKER Visits 1 Evaluation Information Evaluation Date 12/12/23 Precautions Precautions Depression controlled by meds. PT-OP-B Current Condition Start: 12/12/23 08:12 Freq: Status: Active Protocol: Document 12/12/23 08:20 LRN (Rec: 12/12/23 09:11 LRN [id number]) Current Condition History of Current Condition Onset Date 1 month ago Current Complaints Constant pn down the lateral LLE, worse in sitting, better standing/walking History of Current Condition Pt states she woke in the middle of the night with the L posterior deep hip pain that was pressent intermittently; then 3 wks later during the night she felt the pain down the lateral LLE that she states feels like a constant tera horse. Yesterday the pain became constant. She has been taking IBP (works at [employer]) every other day but doesn't feel it is helpful. She is now taking ms relaxors that helps her to get 3 hrs of sleep, then some sleep every hour. States it is more comfortable moving & walking rather than sitting. Prior Treatments and Tests IBP, now taking ms relaxors. Future Testing and Treatments Planned None Developmental History Developmental History Vaginal births: x 3, wo complications (reclined on birthing table). With first born child 30 yrs ago had R LE occasional pain. PMH: fx'd R lower leg above ankle age 50, L torn knee cartilage over 25 yrs ago. Treatment Goals Patient/Caregiver Goals Pt goal: Be able to sleep through the night. Be able to sit on plane ride to [facility] (6 hrs). Personal Factors Other Personal Factors That May Effect Depression controlled with Therapy/Recovery meds, works at a [employer] . PT-OP-C Subjective Start: 12/12/23 08:12 Freq: Status: Active Protocol: Document 01/01/24 08:04 AB (Rec: 01/01/24 09:47 AB [id number]) OP-PT Subjective Patient Comments Patient Comments Patient reports she is better, comments that she believes it is from the Gabapentin. Patient comments the right foot feels off, weak when wearing flip flops. PROM limited for left hip ER. left AI right PI start of session PT-OP-G Mobility & Gait Start: 12/12/23 08:12 Freq: Status: Active Protocol: Document 12/12/23 08:20 LRN (Rec: 12/12/23 09:11 LRN [id number]) OP Mobility Evaluation Bed Mobility Rolling L hip/LE pain rolling in bed Supine to and from Sit L hip/LE pain rolling in bed PT-OP-H Neuro Start: 12/12/23 08:12 Freq: Status: Active Protocol: Document 12/12/23 08:20 LRN (Rec: 12/12/23 09:11 LRN [id number]) Sensation Evaluation Gross Sensation Gross Sensation WNL Deep Tendon Reflex & Clonus Assessment Deep Tendon Reflex Bilateral Achilles Deep Tendon Reflex 0 Absent Right Patellar Deep Tendon Reflex 3+ Normal But Brisk Left Patellar Deep Tendon Reflex 2+ Normal PT-OP-J Posture/Palpation/Skin Start: 12/12/23 08:12 Freq: Status: Active Protocol: Document 12/12/23 08:20 LRN (Rec: 12/12/23 09:11 LRN [id number]) Posture Evaluation Position Standing Head/C-Spine Posture Forward Head L-Spine Posture Increased Lordosis,Shifted Left Shoulder Posture (L) Elevated Arm Posture (L) Internally Rotated,(R) Internally Rotated Weight Distribution Weight Shifted Right Knee Posture (L) Genu Valgus,(R) Genu Valgus,(L) Genu Recurvatum Foot Arch (L) Medium Arch,(R) Low Arch Comments Posture Comments Dowagers hump, Flattened mid thoracic, mild C-curve lumbar spine w/apex on L, mild valgus of knees. Mild L Genu Recurvatum. Palpation Assessment Location LE's at ankles Palpation Location R LE: Sup>Long sit moves long > equal length. Palpation Details L LE: Sup> long sit moves short > equal length (L innom Posterior rot, R innom anterior rot). 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 Sacrum & trunk L rotated, L hip posterior ms - soft tissue tightness. PT-OP-K Range of Motion Start: 12/12/23 08:12 Freq: Status: Active Protocol: Document 12/12/23 08:20 LRN (Rec: 12/12/23 09:11 LRN [id number]) Lumbar Spine Range of Motion Lumbar Spine Active Degrees Testing Position Standing Flexion 93 Extension 12 Rotation Left 15 Rotation Right 15 Lateral Flexion Left 15 Lateral Flexion Right 15 Comments Pain flexion Hip Goniometric Range of Motion Hip Right Passive Straight Leg Raise 100 Abduction 40 Internal Rotation 25 External Rotation 55 Left Passive Straight Leg Raise 90 Abduction 40 Internal Rotation 30 External Rotation 60 PT-OP-L Special Tests Start: 12/12/23 08:12 Freq: Status: Active Protocol: Document 12/17/23 13:03 LRN (Rec: 12/17/23 16:14 LRN [id number]) Special Tests Hip Special Tests Moreno Test Results + bilateral Comments Mild hip flexor tightness bilaterally. PT-OP-M Strength Start: 12/12/23 08:12 Freq: Status: Active Protocol: Document 12/12/23 08:20 LRN (Rec: 12/12/23 09:11 LRN [id number]) Trunk Strength Trunk Manual Muscle Testing Flexion 3+ Fair+ Extension 3+ Fair+ Rotation Left 3+ Fair+ Rotation Right 3+ Fair+ Hip Strength Hip Manual Muscle Testing Right Comments Hip strength is 5/5. Left Flexion (L2) 3 Fair Abduction 4+ Good+ Internal Rotation 3 Fair Comments Hip strength is 5/5 except as indicated above. PT-OP-Q Treatments Start: 12/12/23 08:12 Freq: Status: Active Protocol: Document 01/01/24 08:04 AB (Rec: 01/01/24 09:47 AB [id number]) Therapeutic Exercises Supine Exercises Modified Moreno stretch Side left Reps/Minutes one minute X 1 with AROM knee flexion Comments Verbal cues for LE position, and to piriformis stretch Side left Reps/Minutes one minute X 1 Comments verbal and tactile cues figure 4 stretch Side left Reps/Minutes one minute X 2 Comments verbal and tactile cues DKTC stretch Reps/Minutes X3 for 10 breaths Comments verbal cues for breathing from diaphragm TA/bridge Supine Exercise Name Neutral spine positioning/TA/ bridge Reps/Minutes X10 Comments verbal cues for bracing Sitting Exercises figure 4 stretch Side left Reps/Minutes one minute X 1 Comments verbal cues Therapeutic Activity Therapeutic Activity sit to stand Reps/Minutes X5 Comments Pt ed use of self tactile cues for hip hinge. Rolling Name Log roll Comments Verbal cues to align hip and shoulder, performed from left and right side Manual Therapy Treatment Consent Patient gave verbal consent for manual Yes treatment Soft Tissue Mobilization left LS paraspinals, glute/piriformis and hip flexor at groin. Mobilization Type Cross-Friction,Rolling, Sustained Pressure Intensity/Depth Moderate Body Position Hooklying Comments and sidelying monitored for pain performed prior to stretches and MET Manual Techniques MET for left AI right PI Type resisted hip add hip flexed resisted ext left Reps/Duration 3 seconds 3 X each PT-OP-T Assessment and Plan Start: 12/12/23 08:12 Freq: Status: Active Protocol: Document 01/01/24 08:04 AB (Rec: 01/01/24 09:47 AB [id number]) Physical Therapy Assessment Goals Three Impairment Pt is not able to tolerate sitting due to L sciatic pain Impairment Pelvic obliquity: L innom anterior rot/R innom posterior rot. Short Term Goal (STG) Pt will be educated in proper sitting posture with normal pelvic positioning (correct L innom anterior rot/R innom posterior rot). 12/17/23: Supine correction of rotated L innominate. 12/19/23: Pt self corrected L innomate rotation. Pt educated in proper sit posturing with normal pelvic positioning. STG Duration 5 wks-01/17/24 (12/19/23: MET GOAL) Shelter Goal (LTG) Pt will be able to sit for > 1 -2 hrs at a time to be able to tolerated a plane ride to [facility] (6 hrs). LTG Duration 12 wks-03/06/24 Two Impairment L Sciatic pain interrupting pt sleeping ability Impairment Pt was able to sleep through the night, 3-4 hrs at a time. Short Term Goal (STG) Pt will be educated in best practice positioning and posture corrections to relieve L sciatic pain. 12/17/23: Pt educated in best practice positioning for nighttime sleeping position. STG Duration 3 wks-01/03/24 progressed (need educ posture sitting/standing) Shelter Goal (LTG) Pt will be able to sleep 3-4 hrs through the night without interruptions due to L LE pain . 12/19/23: Pt able to sleep through the night w/o pain ( except for waking for bladder) after starting Gabapentin medication LTG Duration 12 wks-03/06/24 progressing 12/19/23 One Impairment Pt lacks appropriate self care HEP. Short Term Goal (STG) Pt will be educated in log roll transfers, & proper body mechanics for ADLs. 12/17/23: Pt educted rolling in bed side<>side with core stabilized (TA tight). 01/01/2024 Reviews log roll continued cues to avoid twisting and to relax head on pillow STG Duration 2 wks-12/27/23 progressed 12/17/23 Shelter Goal (LTG) Pt will be independent in an effective self care HEP for pelvic/core/hip strengthening and mobility ex's. 12/17/23: HEP: core stab of supine TA tight, TA/heel slide ; TA clamshell, & standing Iliopsoas stretch. 12/19/23: HEP: nando BKFO w/TB , and SIJ dyfunction phase I, added TA/bridge and DKTC LTG Duration 12 wks-03/06/24 progressed 12/19/23 Assessment Summary Assessment Mariam into session with left AI right PI, with equal LE length in hooklying post. Good return demonstration for log roll, but does require verbal cues. Patient reports she feels the same end of session. Physical Therapy Plan Frequency and Duration Frequency of Treatment 2x/Week Duration of treatment (weeks) 12 Plan of Care Start Date 12/12/23 Plan of Care End Date 03/06/24 Next Visit Focus/Plan Next Note Type Treatment Note Next Visit Plan If needed correction for L innom anterior rot. Next: Assess gait and transfer mechanics (wbing) and continue ed and review in log roll transfers, & proper body mechanics for ADLs. POC: Manual therapy/JMT to Normalize pelvic position and stabilize; correct sacral/ lumbar spine L rotation and stabilize; STM to normalize left hip, improve hip flexor mobility and L>R L/S paraspinal ms tension, and improve core/hip strength. Modalities if needed for ms relaxation and pain management .
--- NOTE | 2024-01-03 17:13 | PT.OTN ---
Current Diagnoses Low back pain, unspecified (01/03/24) Muscle weakness (generalized) (01/03/24) Abnormal posture (01/03/24) Physical Therapy Treatment Note PT-OP-A Visit Information Start: 12/12/23 08:12 Freq: Status: Active Protocol: Document 01/03/24 08:18 LRN (Rec: 01/03/24 09:01 LRN [id number]) Out-Patient Physical Therapy Visit Information Visit Information Visit Type Treatment Note Visit Start Time 08:15 Visit Stop Time 08:55 Visit Number 5 Evaluation Information Evaluation Date 12/12/23 Precautions Precautions Depression controlled by meds. PT-OP-B Current Condition Start: 12/12/23 08:12 Freq: Status: Active Protocol: Document 12/12/23 08:20 LRN (Rec: 12/12/23 09:11 LRN [id number]) Current Condition History of Current Condition Onset Date 1 month ago Current Complaints Constant pn down the lateral LLE, worse in sitting, better standing/walking History of Current Condition Pt states she woke in the middle of the night with the L posterior deep hip pain that was pressent intermittently; then 3 wks later during the night she felt the pain down the lateral LLE that she states feels like a constant tera horse. Yesterday the pain became constant. She has been taking IBP (works at [employer]) every other day but doesn't feel it is helpful. She is now taking ms relaxors that helps her to get 3 hrs of sleep, then some sleep every hour. States it is more comfortable moving & walking rather than sitting. Prior Treatments and Tests IBP, now taking ms relaxors. Future Testing and Treatments Planned None Developmental History Developmental History Vaginal births: x 3, wo complications (reclined on birthing table). With first born child 30 yrs ago had R LE occasional pain. PMH: fx'd R lower leg above ankle age 50, L torn knee cartilage over 25 yrs ago. Treatment Goals Patient/Caregiver Goals Pt goal: Be able to sleep through the night. Be able to sit on plane ride to [facility] (6 hrs). Personal Factors Other Personal Factors That May Effect Depression controlled with Therapy/Recovery meds, works at a [employer] . PT-OP-C Subjective Start: 12/12/23 08:12 Freq: Status: Active Protocol: Document 01/03/24 08:18 LRN (Rec: 01/03/24 09:01 LRN [id number]) OP-PT Subjective Patient Comments Patient Comments Gabapentin has helped to get sleep. States leg pain was worse the next day. States went on road trip (before last appt) and sitting in car for hours and waking the next day had no pain. Reports L side feels different after manual therapy PT-OP-G Mobility & Gait Start: 12/12/23 08:12 Freq: Status: Active Protocol: Document 12/12/23 08:20 LRN (Rec: 12/12/23 09:11 LRN [id number]) OP Mobility Evaluation Bed Mobility Rolling L hip/LE pain rolling in bed Supine to and from Sit L hip/LE pain rolling in bed PT-OP-H Neuro Start: 12/12/23 08:12 Freq: Status: Active Protocol: Document 12/12/23 08:20 LRN (Rec: 12/12/23 09:11 LRN [id number]) Sensation Evaluation Gross Sensation Gross Sensation WNL Deep Tendon Reflex & Clonus Assessment Deep Tendon Reflex Bilateral Achilles Deep Tendon Reflex 0 Absent Right Patellar Deep Tendon Reflex 3+ Normal But Brisk Left Patellar Deep Tendon Reflex 2+ Normal PT-OP-J Posture/Palpation/Skin Start: 12/12/23 08:12 Freq: Status: Active Protocol: Document 12/12/23 08:20 LRN (Rec: 12/12/23 09:11 LRN [id number]) Posture Evaluation Position Standing Head/C-Spine Posture Forward Head L-Spine Posture Increased Lordosis,Shifted Left Shoulder Posture (L) Elevated Arm Posture (L) Internally Rotated,(R) Internally Rotated Weight Distribution Weight Shifted Right Knee Posture (L) Genu Valgus,(R) Genu Valgus,(L) Genu Recurvatum Foot Arch (L) Medium Arch,(R) Low Arch Comments Posture Comments Dowagers hump, Flattened mid thoracic, mild C-curve lumbar spine w/apex on L, mild valgus of knees. Mild L Genu Recurvatum. Palpation Assessment Location LE's at ankles Palpation Location R LE: Sup>Long sit moves long > equal length. Palpation Details L LE: Sup> long sit moves short > equal length (L innom Posterior rot, R innom anterior rot). 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 Sacrum & trunk L rotated, L hip posterior ms - soft tissue tightness. PT-OP-K Range of Motion Start: 12/12/23 08:12 Freq: Status: Active Protocol: Document 12/12/23 08:20 LRN (Rec: 12/12/23 09:11 LRN [id number]) Lumbar Spine Range of Motion Lumbar Spine Active Degrees Testing Position Standing Flexion 93 Extension 12 Rotation Left 15 Rotation Right 15 Lateral Flexion Left 15 Lateral Flexion Right 15 Comments Pain flexion Hip Goniometric Range of Motion Hip Right Passive Straight Leg Raise 100 Abduction 40 Internal Rotation 25 External Rotation 55 Left Passive Straight Leg Raise 90 Abduction 40 Internal Rotation 30 External Rotation 60 PT-OP-L Special Tests Start: 12/12/23 08:12 Freq: Status: Active Protocol: Document 12/17/23 13:03 LRN (Rec: 12/17/23 16:14 LRN [id number]) Special Tests Hip Special Tests Moreno Test Results + bilateral Comments Mild hip flexor tightness bilaterally. PT-OP-M Strength Start: 12/12/23 08:12 Freq: Status: Active Protocol: Document 12/12/23 08:20 LRN (Rec: 12/12/23 09:11 LRN [id number]) Trunk Strength Trunk Manual Muscle Testing Flexion 3+ Fair+ Extension 3+ Fair+ Rotation Left 3+ Fair+ Rotation Right 3+ Fair+ Hip Strength Hip Manual Muscle Testing Right Comments Hip strength is 5/5. Left Flexion (L2) 3 Fair Abduction 4+ Good+ Internal Rotation 3 Fair Comments Hip strength is 5/5 except as indicated above. PT-OP-Q Treatments Start: 12/12/23 08:12 Freq: Status: Active Protocol: Document 01/03/24 08:18 LRN (Rec: 01/03/24 09:01 LRN [id number]) Therapeutic Exercises Supine Exercises Phase 1 SIJ correction Supine Exercise Name Lorelei Hip AD > Resisted R hip flex x 3 > Bridge x 10, DKTC x 10 Reps/Minutes 10' Comments Pt required cuing throughout correction process with + response. Manual Therapy Treatment Soft Tissue Mobilization Sacral Balancing Body Location Sacrum, Ileums Mobilization Type Sustained Pressure Body Position Supine Comments L Sacral sulcus infer glide, L Sacral Sulcus PA glide. L sacram, shear to R, R ELISE and Ischial Tub PA glide 6 pt sacral balancing x 1 (not able to do Pubic Rami superior glide) PT-OP-T Assessment and Plan Start: 12/12/23 08:12 Freq: Status: Active Protocol: Document 01/03/24 08:18 LRN (Rec: 01/03/24 09:01 LRN [id number]) Physical Therapy Assessment Goals Three Impairment Pt is not able to tolerate sitting due to L sciatic pain Impairment Pelvic obliquity: L innom anterior rot/R innom posterior rot. Short Term Goal (STG) Pt will be educated in proper sitting posture with normal pelvic positioning (correct L innom anterior rot/R innom posterior rot). 12/17/23: Supine correction of rotated L innominate. 12/19/23: Pt self corrected L innomate rotation. Pt educated in proper sit posturing with normal pelvic positioning. STG Duration 5 wks-01/17/24 (12/19/23: MET GOAL) Intermediate Goal (LTG) Pt will be able to sit for > 1 -2 hrs at a time to be able to tolerated a plane ride to [facility] (6 hrs). LTG Duration 12 wks-03/06/24 Two Impairment L Sciatic pain interrupting pt sleeping ability Impairment Pt was able to sleep through the night, 3-4 hrs at a time. Short Term Goal (STG) Pt will be educated in best practice positioning and posture corrections to relieve L sciatic pain. 12/17/23: Pt educated in best practice positioning for nighttime sleeping position. STG Duration 3 wks-01/03/24 progressed (need educ posture sitting/standing) Intermediate Goal (LTG) Pt will be able to sleep 3-4 hrs through the night without interruptions due to L LE pain . 12/19/23: Pt able to sleep through the night w/o pain ( except for waking for bladder) after starting Gabapentin medication LTG Duration 12 wks-03/06/24 progressing 12/19/23 One Impairment Pt lacks appropriate self care HEP. Short Term Goal (STG) Pt will be educated in log roll transfers, & proper body mechanics for ADLs. 12/17/23: Pt educted rolling in bed side<>side with core stabilized (TA tight). 01/01/2024 Reviews log roll continued cues to avoid twisting and to relax head on pillow. STG Duration 2 wks-12/27/23 progressed 12/17/23 Intermediate Goal (LTG) Pt will be independent in an effective self care HEP for pelvic/core/hip strengthening and mobility ex's. 12/17/23: HEP: core stab of supine TA tight, TA/heel slide ; TA clamshell, & standing Iliopsoas stretch. 12/19/23: HEP: nando BKFO w/TB , and SIJ dyfunction phase I, added TA/bridge and DKTC LTG Duration 12 wks-03/06/24 progressed 12/19/23 Assessment Summary Assessment Pt is a 63 yo female w/SIJ dysfunction (L innom anterior rot/R innom posterior rot) & pelvic instability, L sciatic pain, soft tissue tightness of L gluteal & L/S paraspinal L> R muscle, and decr'd core/hip strength. Today she needed cuing for transfer mechanics. She was independent with SIJ, phase I self correction. I was not able to fully correct sacral/innominate positioning with Sacral balancing. Physical Therapy Plan Frequency and Duration Frequency of Treatment 2x/Week Duration of treatment (weeks) 12 Plan of Care Start Date 12/12/23 Plan of Care End Date 03/06/24 Next Visit Focus/Plan Next Note Type Treatment Note Next Visit Plan Complete Sacral balancing. If needed, correction for L innom anterior rot. Next: Assess gait and transfer mechanics ( wbing) and continue ed and review in log roll transfers, & proper body mechanics for ADLs. POC: Manual therapy/JMT to Normalize pelvic position and stabilize; correct sacral/ lumbar spine L rotation and stabilize; STM to normalize left hip, improve hip flexor mobility and L>R L/S paraspinal ms tension, and improve core/hip strength. Modalities if needed for ms relaxation and pain management .
--- NOTE | 2024-01-08 10:44 | PT.OTN ---
Current Diagnoses Low back pain, unspecified (01/08/24) Muscle weakness (generalized) (01/08/24) Abnormal posture (01/08/24) Physical Therapy Treatment Note PT-OP-A Visit Information Start: 12/12/23 08:12 Freq: Status: Active Protocol: Document 01/08/24 10:28 NBM (Rec: 01/08/24 11:23 NBM [id number]) Out-Patient Physical Therapy Visit Information Visit Information Visit Type Treatment Note Visit Start Time 10:30 Visit Stop Time 11:21 Visit Number 6 Number of DEDENTER Visits 1 Evaluation Information Evaluation Date 12/12/23 Precautions Precautions Depression controlled by meds. PT-OP-B Current Condition Start: 12/12/23 08:12 Freq: Status: Active Protocol: Document 12/12/23 08:20 LRN (Rec: 12/12/23 09:11 LRN [id number]) Current Condition History of Current Condition Onset Date 1 month ago Current Complaints Constant pn down the lateral LLE, worse in sitting, better standing/walking History of Current Condition Pt states she woke in the middle of the night with the L posterior deep hip pain that was pressent intermittently; then 3 wks later during the night she felt the pain down the lateral LLE that she states feels like a constant tera horse. Yesterday the pain became constant. She has been taking IBP (works at [employer]) every other day but doesn't feel it is helpful. She is now taking ms relaxors that helps her to get 3 hrs of sleep, then some sleep every hour. States it is more comfortable moving & walking rather than sitting. Prior Treatments and Tests IBP, now taking ms relaxors. Future Testing and Treatments Planned None Developmental History Developmental History Vaginal births: x 3, wo complications (reclined on birthing table). With first born child 30 yrs ago had R LE occasional pain. PMH: fx'd R lower leg above ankle age 50, L torn knee cartilage over 25 yrs ago. Treatment Goals Patient/Caregiver Goals Pt goal: Be able to sleep through the night. Be able to sit on plane ride to [facility] (6 hrs). 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 PT-OP-C Subjective Start: 12/12/23 08:12 Freq: Status: Active Protocol: Document 01/08/24 10:28 NBM (Rec: 01/08/24 11:23 [facility] [id number]) OP-PT Subjective Patient Comments Patient Comments Mariam reports confusion with information received from different therapists so far about whether she should be stretching or strengthening, and concern that she may do something wrong and experience the excruciating pain again, although this hasn't happened. She is more aware of her body mechanics especially at work but is unsure how to get out of the bed safely once she's in, or how to move her position on the couch safely. The gabapentin has helped but she doesn't want to be stuck on it forever. She noticed her gait is different and some weakness in her R leg but she doesn't remember when it was, but she feels like her gait is more normal now than before. The pelvic balancing from last visit seems to have helped. Patient Reported Progress Improving PT-OP-G Mobility & Gait Start: 12/12/23 08:12 Freq: Status: Active Protocol: Document 12/12/23 08:20 LRN (Rec: 12/12/23 09:11 LRN [id number]) OP Mobility Evaluation Bed Mobility Rolling L hip/LE pain rolling in bed Supine to and from Sit L hip/LE pain rolling in bed PT-OP-H Neuro Start: 12/12/23 08:12 Freq: Status: Active Protocol: Document 12/12/23 08:20 LRN (Rec: 12/12/23 09:11 LRN [id number]) Sensation Evaluation Gross Sensation Gross Sensation WNL Deep Tendon Reflex & Clonus Assessment Deep Tendon Reflex Bilateral Achilles Deep Tendon Reflex 0 Absent Right Patellar Deep Tendon Reflex 3+ Normal But Brisk Left Patellar Deep Tendon Reflex 2+ Normal PT-OP-J Posture/Palpation/Skin Start: 12/12/23 08:12 Freq: Status: Active Protocol: Document 12/12/23 08:20 LRN (Rec: 12/12/23 09:11 LRN [id number]) Posture Evaluation Position Standing Head/C-Spine Posture Forward Head L-Spine Posture Increased Lordosis,Shifted Left Shoulder Posture (L) Elevated Arm Posture (L) Internally Rotated,(R) Internally Rotated Weight Distribution Weight Shifted Right Knee Posture (L) Genu Valgus,(R) Genu Valgus,(L) Genu Recurvatum Foot Arch (L) Medium Arch,(R) Low Arch Comments Posture Comments Dowagers hump, Flattened mid thoracic, mild C-curve lumbar spine w/apex on L, mild valgus of knees. Mild L Genu Recurvatum. Palpation Assessment Location LE's at ankles Palpation Location R LE: Sup>Long sit moves long > equal length. Palpation Details L LE: Sup> long sit moves short > equal length (L innom Posterior rot, R innom anterior rot). Supine: high L ASIS, L Ischial tuberosity is inferior (L innom Clinical Rehabilitation Specialist rot). Sacrum & trunk L rotated, L hip posterior ms - soft tissue tightness. PT-OP-K Range of Motion Start: 12/12/23 08:12 Freq: Status: Active Protocol: Document 12/12/23 08:20 LRN (Rec: 12/12/23 09:11 LRN [id number]) Lumbar Spine Range of Motion Lumbar Spine Active Degrees Testing Position Standing Flexion 93 Extension 12 Rotation Left 15 Rotation Right 15 Lateral Flexion Left 15 Lateral Flexion Right 15 Comments Pain flexion Hip Goniometric Range of Motion Hip Right Passive Straight Leg Raise 100 Abduction 40 Internal Rotation 25 External Rotation 55 Left Passive Straight Leg Raise 90 Abduction 40 Internal Rotation 30 External Rotation 60 PT-OP-L Special Tests Start: 12/12/23 08:12 Freq: Status: Active Protocol: Document 12/17/23 13:03 LRN (Rec: 12/17/23 16:14 LRN [id number]) Special Tests Hip Special Tests Moreno Test Results + bilateral Comments Mild hip flexor tightness bilaterally. PT-OP-M Strength Start: 12/12/23 08:12 Freq: Status: Active Protocol: Document 12/12/23 08:20 LRN (Rec: 12/12/23 09:11 LRN [id number]) Trunk Strength Trunk Manual Muscle Testing Flexion 3+ Fair+ Extension 3+ Fair+ Rotation Left 3+ Fair+ Rotation Right 3+ Fair+ Hip Strength Hip Manual Muscle Testing Right Comments Hip strength is 5/5. Left Flexion (L2) 3 Fair Abduction 4+ Good+ Internal Rotation 3 Fair Comments Hip strength is 5/5 except as indicated above. PT-OP-Q Treatments Start: 12/12/23 08:12 Freq: Status: Active Protocol: Document 01/08/24 10:28 NBM (Rec: 07/03/24 11:23 [facility] [id number]) Therapeutic Exercises Supine Exercises TA/nando BKFO Equipment Used Lev 2 TB Reps/Minutes 10x ea TA heel slides Supine Exercise Name Pt palpating TrAmedial to ASIS to identify when loss of holding contraction Side bilateral Reps/Minutes 10' Comments Cued pt with DEDENTER hand under LB and v cuing given. Self-Care/Home Management Treatment Education Patient Education Body Mechanics,Home Exercise Program,Posture Other Education Education of core anatomy w/ visual aids for Transverse abdominis m., interrelationship of diaphragm and pelvic floor w/ emphasis for no breathholding w/ core ex's. Review of Core HEP w/ breathwork, and clarification for pt on role of stretching and strengthening for overall goals. Pt expresses understanding. Activities Self-Care/Home Management Activities Review of log roll to exit bed and edu focus on log roll to enter bed and also to position self on couch; focus on swinging legs up together as shoulder lowers (pendulum movement). 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 PT-OP-T Assessment and Plan Start: 12/12/23 08:12 Freq: Status: Active Protocol: Document 01/08/24 10:28 [facility] (Rec: 01/08/24 11:23 [facility] [id number]) Physical Therapy Assessment Goals Three Impairment Pt is not able to tolerate sitting due to L sciatic pain Impairment Pelvic obliquity: L innom anterior rot/R innom posterior rot. Short Term Goal (STG) Pt will be educated in proper sitting posture with normal pelvic positioning (correct L innom anterior rot/R innom posterior rot). 12/17/23: Supine correction of rotated L innominate. 12/19/23: Pt self corrected L innomate rotation. Pt educated in proper sit posturing with normal pelvic positioning. STG Duration 5 wks-01/17/24 (12/19/23: MET GOAL) Polysomnograph Tech Goal (LTG) Pt will be able to sit for > 1 -2 hrs at a time to be able to tolerated a plane ride to [facility] (6 hrs). LTG Duration 12 wks-03/06/24 Two Impairment L Sciatic pain interrupting pt sleeping ability Impairment Pt was able to sleep through the night, 3-4 hrs at a time. Short Term Goal (STG) Pt will be educated in best practice positioning and posture corrections to relieve L sciatic pain. 12/17/23: Pt educated in best practice positioning for nighttime sleeping position. STG Duration 3 wks-01/03/24 progressed (need educ posture sitting/standing) Polysomnograph Tech Goal (LTG) Pt will be able to sleep 3-4 hrs through the night without interruptions due to L LE pain . 12/19/23: Pt able to sleep through the night w/o pain ( except for waking for bladder) after starting Gabapentin medication LTG Duration 12 wks-03/06/24 progressing 12/19/23 One Impairment Pt lacks appropriate self care HEP. Short Term Goal (STG) Pt will be educated in log roll transfers, & proper body mechanics for ADLs. 12/17/23: Pt educted rolling in bed side<>side with core stabilized (TA tight). 01/01/2024 Reviews log roll continued cues to avoid twisting and to relax head on pillow. 01/08/2024: Review of log roll to exit bed and edu focus on log roll to enter bed and also to position self on couch; focus on swinging legs up together as shoulder lowers ( pendulum movement). STG Duration 2 wks-12/27/23 progressed 12/17/23 Long-Term Goal (LTG) Pt will be independent in an effective self care HEP for pelvic/core/hip strengthening and mobility ex's. 12/17/23: HEP: core stab of supine TA tight, TA/heel slide ; TA clamshell, & standing Iliopsoas stretch. 12/19/23: HEP: nando BKFO w/TB , and SIJ dyfunction phase I, added TA/bridge and DKTC LTG Duration 12 wks-03/06/24 progressed 12/19/23 Assessment Summary Assessment Treatment focus on Self-care, Therapeutic acitivity and core HEP review consistent with Short- and Long-term Goals One . Education to pt for Transverse abdominis m. anatomy w/ visual aids, interrelationship of diaphragm and pelvic floor and importance of not breathholding w/ core activation; pt also given clarification for role of stretching with strengthening and expresses improved understanding. She is instructed in log-rolling in and out bed, as well as positioning from standing to long sitting on couch, and getting in/out of car focusing on avoiding pelvic asymmetry, . She requires cues for breathwork and slower pacing with Core HEP, and tactile cues for posterior pelvic tilt - self-awareness improves throughout session with cueing and repetition. Physical Therapy Plan Frequency and Duration Frequency of Treatment 2x/Week Duration of treatment (weeks) 12 Plan of Care Start Date 12/12/23 Plan of Care End Date 03/06/24 Therapeutic Interventions Therapeutic Interventions Home Exercise Program,Joint Mobilizations,Manual Therapy, Neuromuscular Re-education, Self-Care/Home Management,Soft Tissue Mobilization,Taping, Therapeutic Activities, Therapeutic Exercises Modalities Electric Stimulation Next Visit Focus/Plan Next Note Type Treatment Note Next Visit Plan Complete Sacral balancing. If needed, correction for L innom anterior rot. Next: Assess gait and transfer mechanics ( wbing) and continue ed and review in log roll transfers, & proper body mechanics for ADLs. POC: Manual therapy/JMT to Normalize pelvic position and stabilize; correct sacral/ lumbar spine L rotation and stabilize; STM to normalize left hip, improve hip flexor mobility and L>R L/S paraspinal ms tension, and improve core/hip strength. Modalities if needed for ms relaxation and pain management .
--- NOTE | 2024-01-31 12:24 | PT.OTN ---
Current Diagnoses Low back pain, unspecified (01/31/24) Muscle weakness (generalized) (01/31/24) Abnormal posture (01/31/24) Physical Therapy Treatment Note PT-OP-A Visit Information Start: 12/12/23 08:12 Freq: Status: Active Protocol: Document 01/31/24 11:04 NBM (Rec: 01/31/24 12:24 NBM [id number]) Out-Patient Physical Therapy Visit Information Visit Information Visit Type Treatment Note Visit Start Time 11:13 Visit Stop Time 12:03 Visit Number 7 Number of PHOTOGRAPHY MANAGER Visits 2 Evaluation Information Evaluation Date 12/12/23 Precautions Precautions Depression controlled by meds. PT-OP-B Current Condition Start: 12/12/23 08:12 Freq: Status: Active Protocol: Document 12/12/23 08:20 LRN (Rec: 12/12/23 09:11 LRN [id number]) Current Condition History of Current Condition Onset Date 1 month ago Current Complaints Constant pn down the lateral LLE, worse in sitting, better standing/walking History of Current Condition Pt states she woke in the middle of the night with the L posterior deep hip pain that was pressent intermittently; then 3 wks later during the night she felt the pain down the lateral LLE that she states feels like a constant tera horse. Yesterday the pain became constant. She has been taking IBP (works at [employer]) every other day but doesn't feel it is helpful. She is now taking ms relaxors that helps her to get 3 hrs of sleep, then some sleep every hour. States it is more comfortable moving & walking rather than sitting. Prior Treatments and Tests IBP, now taking ms relaxors. Future Testing and Treatments Planned None Developmental History Developmental History Vaginal births: x 3, wo complications (reclined on birthing table). With first born child 30 yrs ago had R LE occasional pain. PMH: fx'd R lower leg above ankle age 50, L torn knee cartilage over 25 yrs ago. Treatment Goals Patient/Caregiver Goals Pt goal: Be able to sleep through the night. Be able to sit on plane ride to [facility] (6 hrs). 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 PT-OP-C Subjective Start: 12/12/23 08:12 Freq: Status: Active Protocol: Document 01/31/24 11:04 NBM (Rec: 01/31/24 12:24 [facility] [id number]) OP-PT Subjective Patient Comments Patient Comments Mariam reports she woke up wit L SI pain last night at 4am and was able to use stretches and pillows between legs to lie on side and resolve pain enough to sleep, but when she woke up for the day had pain all the way down your leg. She 's confused as she seems to get better and then backslides , but she notices there may be an emotional component because she is caregiving for her mother at this point without sibling support. She notices pain is mostly when sleeping. L SI pain 2-09/14 currently - I'm aware of it but it's not excruciating or anything. She's avoiding taking ibuprofen daily and doesn't want to stay on Gabapentin forever. She was able to tolerate sitting in car 6 hours without pain when car overheated on a roadtrip. She does ex's daily except for Saturday and Saturday when she works. She sleeps with dense pillow under her knees when on her back because it's too uncomfortable and when on side it goes between legs. Patient Reported Progress Improving PT-OP-G Mobility & Gait Start: 12/12/23 08:12 Freq: Status: Active Protocol: Document 12/12/23 08:20 LRN (Rec: 12/12/23 09:11 LRN [id number]) OP Mobility Evaluation Bed Mobility Rolling L hip/LE pain rolling in bed Supine to and from Sit L hip/LE pain rolling in bed PT-OP-H Neuro Start: 12/12/23 08:12 Freq: Status: Active Protocol: Document 12/12/23 08:20 LRN (Rec: 12/12/23 09:11 LRN [id number]) Sensation Evaluation Gross Sensation Gross Sensation WNL Deep Tendon Reflex & Clonus Assessment Deep Tendon Reflex Bilateral Achilles Deep Tendon Reflex 0 Absent Right Patellar Deep Tendon Reflex 3+ Normal But Brisk Left Patellar Deep Tendon Reflex 2+ Normal PT-OP-J Posture/Palpation/Skin Start: 12/12/23 08:12 Freq: Status: Active Protocol: Document 12/12/23 08:20 LRN (Rec: 12/12/23 09:11 LRN [id number]) Posture Evaluation Position Standing Head/C-Spine Posture Forward Head L-Spine Posture Increased Lordosis,Shifted Left Shoulder Posture (L) Elevated Arm Posture (L) Internally Rotated,(R) Internally Rotated Weight Distribution Weight Shifted Right Knee Posture (L) Genu Valgus,(R) Genu Valgus,(L) Genu Recurvatum Foot Arch (L) Medium Arch,(R) Low Arch Comments Posture Comments Dowagers hump, Flattened mid thoracic, mild C-curve lumbar spine w/apex on L, mild valgus of knees. Mild L Genu Recurvatum. Palpation Assessment Location LE's at ankles Palpation Location R LE: Sup>Long sit moves long > equal length. Palpation Details L LE: Sup> long sit moves short > equal length (L innom Posterior rot, R innom anterior rot). 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 Sacrum & trunk L rotated, L hip posterior ms - soft tissue tightness. PT-OP-K Range of Motion Start: 12/12/23 08:12 Freq: Status: Active Protocol: Document 12/12/23 08:20 LRN (Rec: 12/12/23 09:11 N [id number]) Lumbar Spine Range of Motion Lumbar Spine Active Degrees Testing Position Standing Flexion 93 Extension 12 Rotation Left 15 Rotation Right 15 Lateral Flexion Left 15 Lateral Flexion Right 15 Comments Pain flexion Hip Goniometric Range of Motion Hip Right Passive Straight Leg Raise 100 Abduction 40 Internal Rotation 25 External Rotation 55 Left Passive Straight Leg Raise 90 Abduction 40 Internal Rotation 30 External Rotation 60 PT-OP-L Special Tests Start: 12/12/23 08:12 Freq: Status: Active Protocol: Document 12/17/23 13:03 LRN (Rec: 12/17/23 16:14 N [id number]) Special Tests Hip Special Tests Moreno Test Results + bilateral Comments Mild hip flexor tightness bilaterally. PT-OP-M Strength Start: 12/12/23 08:12 Freq: Status: Active Protocol: Document 12/12/23 08:20 LRN (Rec: 12/12/23 09:11 LRN [id number]) Trunk Strength Trunk Manual Muscle Testing Flexion 3+ Fair+ Extension 3+ Fair+ Rotation Left 3+ Fair+ Rotation Right 3+ Fair+ Hip Strength Hip Manual Muscle Testing Right Comments Hip strength is 5/5. Left Flexion (L2) 3 Fair Abduction 4+ Good+ Internal Rotation 3 Fair Comments Hip strength is 5/5 except as indicated above. PT-OP-Q Treatments Start: 12/12/23 08:12 Freq: Status: Active Protocol: Document 01/31/24 11:04 [facility] (Rec: 01/31/24 12:24 [facility] [id number]) Therapeutic Exercises Supine Exercises Diaphragmatic Breathing Supine Exercise Name self-monitoring hand on chest, hand on belly Comments pt cued to breathe into belly to activate parasympathetic nervous system. Phase 1 SIJ correction Supine Exercise Name Lorelei Hip AD > Resisted Lvl 2 TB R hip flex x 3 > Bridge x 10, DKTC x 10 Equipment Used Lvl 2 Tb above knees for hip flexion and bridge Reps/Minutes 10' Comments Pt required cuing throughout correction process with + response. piriformis stretch Supine Exercise Name knee to opposite chest Side left Reps/Minutes one minute X 1(20 breath cycles) Comments verbal and tactile cues figure 4 stretch Side left Reps/Minutes one minute X 2 (breathcycle focus) Comments verbal and tactile cues Self-Care/Home Management Treatment Education Patient Education Body Mechanics,Home Exercise Program,Pain Management Other Education Pt instructed PT-OP-T Assessment and Plan Start: 12/12/23 08:12 Freq: Status: Active Protocol: Document 01/31/24 11:04 [facility] (Rec: 01/31/24 12:24 [facility] [id number]) Physical Therapy Assessment Goals Three Impairment Pt is not able to tolerate sitting due to L sciatic pain Impairment Pelvic obliquity: L innom anterior rot/R innom posterior rot. Short Term Goal (STG) Pt will be educated in proper sitting posture with normal pelvic positioning (correct L innom anterior rot/R innom posterior rot). 12/17/23: Supine correction of rotated L innominate. 12/19/23: Pt self corrected L innomate rotation. Pt educated in proper sit posturing with normal pelvic positioning. STG Duration 5 wks-01/17/24 (12/19/23: MET GOAL) Fdc Goal (LTG) Pt will be able to sit for > 1 -2 hrs at a time to be able to tolerated a plane ride to [facility] (6 hrs). LTG Duration 12 wks-03/06/24 Two Impairment L Sciatic pain interrupting pt sleeping ability Impairment Pt was able to sleep through the night, 3-4 hrs at a time. Short Term Goal (STG) Pt will be educated in best practice positioning and posture corrections to relieve L sciatic pain. 12/17/23: Pt educated in best practice positioning for nighttime sleeping position. STG Duration 3 wks-01/03/24 progressed (need educ posture sitting/standing) Alteration Worker Goal (LTG) Pt will be able to sleep 3-4 hrs through the night without interruptions due to L LE pain . 12/19/23: Pt able to sleep through the night w/o pain ( except for waking for bladder) after starting Gabapentin medication LTG Duration 12 wks-03/06/24 progressing 12/19/23 One Impairment Pt lacks appropriate self care HEP. Short Term Goal (STG) Pt will be educated in log roll transfers, & proper body mechanics for ADLs. 12/17/23: Pt educted rolling in bed side<>side with core stabilized (TA tight). 01/01/2024 Reviews log roll continued cues to avoid twisting and to relax head on pillow. 01/08/2024: Review of log roll to exit bed and edu focus on log roll to enter bed and also to position self on couch; focus on swinging legs up together as shoulder lowers ( pendulum movement). STG Duration 2 wks-12/27/23 progressed 12/17/23 Alteration Worker Goal (LTG) Pt will be independent in an effective self care HEP for pelvic/core/hip strengthening and mobility ex's. 12/17/23: HEP: core stab of supine TA tight, TA/heel slide ; TA clamshell, & standing Iliopsoas stretch. 12/19/23: HEP: nando BKFO w/TB , and SIJ dyfunction phase I, added TA/bridge and DKTC LTG Duration 12 wks-03/06/24 progressed 12/19/23 Assessment Summary Assessment Mariam presents today w/ 2-3/10 L hip pain and overall improvement and progress towards goals except still waking up at night due to L hip pain when stressed. Treatment focus education for diaphragmatic breathing for parasympathetic n.s activation for pain dampening and reducing muscle guarding, and HEP review with focus on breathwork as pt continues to demonstrate breathholding with both exercises and stretches. Pt's self-awareness and performance improve with initial cueing and repetition, and cueing for reps with breathwork and stretches using breathcycles for count intstead of seconds. She has a HS cramp on R then L with first two Bridging repetitions while breathholding which resolves w/ cueing for breath and increased knee flexion to improve gluteal focus with bridging using Lvl 2 Tb. If awakening due to L hip pain pt is encouraged to utilize addition of diaphragmatic breathing and piriformis stretching w/ Figure 4 and Knee to opposite chest stretches, and to utilize diaphragmatic breathing at bed time to reduce muscle guarding. Pt is also educated on rehabilitation recovery expectations that progress is not always linear and Mariam expresses improved awareness of overall improvement since starting Physical Therapy. Physical Therapy Plan Frequency and Duration Frequency of Treatment 2x/Week Duration of treatment (weeks) 12 Plan of Care Start Date 12/12/23 Plan of Care End Date 03/06/24 Therapeutic Interventions Therapeutic Interventions Home Exercise Program,Joint Mobilizations,Manual Therapy, Neuromuscular Re-education, Self-Care/Home Management,Soft Tissue Mobilization,Taping, Therapeutic Activities, Therapeutic Exercises Modalities Electric Stimulation Next Visit Focus/Plan Next Note Type Treatment Note Next Visit Plan Complete Sacral balancing. If needed, correction for L innom anterior rot. Next: Assess gait and transfer mechanics ( wbing) and continue ed and review in log roll transfers, & proper body mechanics for ADLs. POC: Manual therapy/JMT to Normalize pelvic position and stabilize; correct sacral/ lumbar spine L rotation and stabilize; STM to normalize left hip, improve hip flexor mobility and L>R L/S paraspinal ms tension, and improve core/hip strength. Modalities if needed for ms relaxation and pain management . She requires one cue for log roll from supine to sitting edge of bed, and expresses L hip feels better end of session.
--- NOTE | 2024-02-03 09:29 | PT.OTN ---
Current Diagnoses Low back pain, unspecified (02/03/24) Muscle weakness (generalized) (02/03/24) Abnormal posture (02/03/24) Physical Therapy Treatment Note PT-OP-A Visit Information Start: 12/12/23 08:12 Freq: Status: Active Protocol: Document 02/03/24 08:18 NM (Rec: 02/03/24 09:26 NM [id number]) Out-Patient Physical Therapy Visit Information Visit Information Visit Type Progress Note Visit Start Time 08:20 Visit Stop Time 09:00 Visit Number 8 PT-OP-B Current Condition Start: 12/12/23 08:12 Freq: Status: Active Protocol: Document 12/12/23 08:20 LRN (Rec: 12/12/23 09:11 LRN [id number]) Current Condition History of Current Condition Onset Date 1 month ago Current Complaints Constant pn down the lateral LLE, worse in sitting, better standing/walking History of Current Condition Pt states she woke in the middle of the night with the L posterior deep hip pain that was pressent intermittently; then 3 wks later during the night she felt the pain down the lateral LLE that she states feels like a constant tera horse. Yesterday the pain became constant. She has been taking IBP (works at [employer]) every other day but doesn't feel it is helpful. She is now taking ms relaxors that helps her to get 3 hrs of sleep, then some sleep every hour. States it is more comfortable moving & walking rather than sitting. Prior Treatments and Tests IBP, now taking ms relaxors. Future Testing and Treatments Planned None Developmental History Developmental History Vaginal births: x 3, wo complications (reclined on birthing table). With first born child 30 yrs ago had R LE occasional pain. PMH: fx'd R lower leg above ankle age 50, L torn knee cartilage over 25 yrs ago. Treatment Goals Patient/Caregiver Goals Pt goal: Be able to sleep through the night. Be able to sit on plane ride to [facility] (6 hrs). Personal Factors Other Personal Factors That May Effect Depression controlled with Therapy/Recovery meds, works at a [employer] . PT-OP-C Subjective Start: 12/12/23 08:12 Freq: Status: Active Protocol: Document 02/03/24 08:18 NM (Rec: 02/03/24 09:26 NM [id number]) OP-PT Subjective Patient Comments Patient Comments Pt reports no pain in L SIJ, reports aware but ok if stretch it out or walk it out. Pt reports frustrating, states was has oscillating between getting better and getting worse. She has been compliant with HEP but does not feel exercises are helping ; also performs other stretches due to age (does not elaborate when asked). She does not like taking gabapentin because of the mental fog that occurs but also does not like waking up. PT-OP-G Mobility & Gait Start: 12/12/23 08:12 Freq: Status: Active Protocol: Document 12/12/23 08:20 LRN (Rec: 12/12/23 09:11 LRN [id number]) OP Mobility Evaluation Bed Mobility Rolling L hip/LE pain rolling in bed Supine to and from Sit L hip/LE pain rolling in bed PT-OP-H Neuro Start: 12/12/23 08:12 Freq: Status: Active Protocol: Document 12/12/23 08:20 LRN (Rec: 12/12/23 09:11 LRN [id number]) Sensation Evaluation Gross Sensation Gross Sensation WNL Deep Tendon Reflex & Clonus Assessment Deep Tendon Reflex Bilateral Achilles Deep Tendon Reflex 0 Absent Right Patellar Deep Tendon Reflex 3+ Normal But Brisk Left Patellar Deep Tendon Reflex 2+ Normal PT-OP-J Posture/Palpation/Skin Start: 12/12/23 08:12 Freq: Status: Active Protocol: Document 12/12/23 08:20 LRN (Rec: 12/12/23 09:11 LRN [id number]) Posture Evaluation Position Standing Head/C-Spine Posture Forward Head L-Spine Posture Increased Lordosis,Shifted Left Shoulder Posture (L) Elevated Arm Posture (L) Internally Rotated,(R) Internally Rotated Weight Distribution Weight Shifted Right Knee Posture (L) Genu Valgus,(R) Genu Valgus,(L) Genu Recurvatum Foot Arch (L) Medium Arch,(R) Low Arch Comments Posture Comments Dowagers hump, Flattened mid thoracic, mild C-curve lumbar spine w/apex on L, mild valgus of knees. Mild L Genu Recurvatum. Palpation Assessment Location LE's at ankles Palpation Location R LE: Sup>Long sit moves long > equal length. Palpation Details L LE: Sup> long sit moves short > equal length (L innom Posterior rot, R innom anterior rot). 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 Sacrum & trunk L rotated, L hip posterior ms - soft tissue tightness. PT-OP-K Range of Motion Start: 12/12/23 08:12 Freq: Status: Active Protocol: Document 12/12/23 08:20 LRN (Rec: 12/12/23 09:11 LRN [id number]) Lumbar Spine Range of Motion Lumbar Spine Active Degrees Testing Position Standing Flexion 93 Extension 12 Rotation Left 15 Rotation Right 15 Lateral Flexion Left 15 Lateral Flexion Right 15 Comments Pain flexion Hip Goniometric Range of Motion Hip Right Passive Straight Leg Raise 100 Abduction 40 Internal Rotation 25 External Rotation 55 Left Passive Straight Leg Raise 90 Abduction 40 Internal Rotation 30 External Rotation 60 PT-OP-L Special Tests Start: 12/12/23 08:12 Freq: Status: Active Protocol: Document 12/17/23 13:03 LRN (Rec: 12/17/23 16:14 LRN [id number]) Special Tests Hip Special Tests Moreno Test Results + bilateral Comments Mild hip flexor tightness bilaterally. PT-OP-M Strength Start: 12/12/23 08:12 Freq: Status: Active Protocol: Document 02/03/24 08:18 NM (Rec: 02/03/24 09:28 NM [id number]) Trunk Strength Trunk Manual Muscle Testing Flexion 3+ Fair+ Extension 3+ Fair+ Rotation Left 3+ Fair+ Rotation Right 3+ Fair+ Hip Strength Hip Manual Muscle Testing Right Comments Hip strength is 5/5. Left Flexion (L2) 3+ Fair+ Abduction 4+ Good+ Internal Rotation 3+ Fair+ Comments evaluation: 3/5 hip flexion, 4 +/5 hip abduction, 3/5 hip IR. Hip strength is 5/5 except as indicated above. PT-OP-Q Treatments Start: 12/12/23 08:12 Freq: Status: Active Protocol: Document 02/03/24 08:18 NM (Rec: 02/03/24 09:26 NM [id number]) Therapeutic Exercises Supine Exercises TA/bridge Supine Exercise Name Neutral spine positioning/TA/ bridge with hip ADD Reps/Minutes 2x10 Comments verbal cues for bracing, equal WB for level pelvis Sidelying Exercises TA/hip abduction Side bilateral Reps/Minutes 2x10 ea Comments with core brace and cues for breathwork; fatiguing but no increase pain Standing Exercises RDL Standing Exercise Name 1. staggered stance RDL, 2. hip airplane Side bilateral Resistance 1. AROM > 3# db Equipment Used with hip hinge Reps/Minutes 1. 5, 10 ea, 2. 5 ea side Comments requires increased time Manual Therapy Treatment Consent Patient gave verbal consent for manual Yes treatment Soft Tissue Mobilization Sacral Balancing Body Location Sacrum, Ileums Mobilization Type Sustained Pressure Body Position Supine Comments L Sacral sulcus inferior glide L Sacral Sulcus PA glide. left LS paraspinals, glute/piriformis and hip flexor at groin. Body Location QL, paraspinals, glute Mobilization Type Rolling,Sustained Pressure Intensity/Depth Superficial Body Position moderate Comments with lateral flexion and flexion bias stretch for paraspinals/QL. good tolerance for soft tissue mobilization prior to exercise Joint Mobilizations SIJ Direction P-A Grade II Body Position Prone Reps/Duration 2x30 Comments for pain reduction PT-OP-T Assessment and Plan Start: 12/12/23 08:12 Freq: Status: Active Protocol: Document 02/03/24 08:18 NM (Rec: 02/03/24 09:26 NM [id number]) Physical Therapy Assessment Goals Three Impairment Pt is not able to tolerate sitting due to L sciatic pain Impairment Pelvic obliquity: L innom anterior rot/R innom posterior rot. Short Term Goal (STG) Pt will be educated in proper sitting posture with normal pelvic positioning (correct L innom anterior rot/R innom posterior rot). 12/17/23: Supine correction of rotated L innominate. 12/19/23: Pt self corrected L innomate rotation. Pt educated in proper sit posturing with normal pelvic positioning. STG Duration 5 wks-01/17/24 (12/19/23: MET GOAL) Skilled Nursing Goal (LTG) Pt will be able to sit for > 1 -2 hrs at a time to be able to tolerated a plane ride to [facility] (6 hrs). 02/03/24: Pt reports ability to sit for >6 hours without increase in pain LTG Duration 12 wks-03/06/24 (PROGRESSING ) Two Impairment L Sciatic pain interrupting pt sleeping ability Impairment Pt was able to sleep through the night, 3-4 hrs at a time. Short Term Goal (STG) Pt will be educated in best practice positioning and posture corrections to relieve L sciatic pain. 12/17/23: Pt educated in best practice positioning for nighttime sleeping position. 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 12/19/23: Pt able to sleep through the night w/o pain ( except for waking for bladder) after starting Gabapentin medication 02/03/24: Pt pain is waking her at 4 am, must stretch to go back to sleep LTG Duration 12 wks-03/06/24 (PROGRESSING 02/03/24) One Impairment Pt lacks appropriate self care HEP. Short Term Goal (STG) Pt will be educated in log roll transfers, & proper body mechanics for ADLs. 12/17/23: Pt educted rolling in bed side<>side with core stabilized (TA tight). 01/01/2024 Reviews log roll continued cues to avoid twisting and to relax head on pillow. 01/08/2024: Review of log roll to exit bed and edu focus on log roll to enter bed and also to position self on couch; focus on swinging legs up together as shoulder lowers ( pendulum movement). STG Duration 2 wks-12/27/23 progressed 12/17/23 Professor Of Social Work Goal (LTG) Pt will be independent in an effective self care HEP for pelvic/core/hip strengthening and mobility ex's. 12/17/23: HEP: core stab of supine TA tight, TA/heel slide ; TA clamshell, & standing Iliopsoas stretch. 12/19/23: HEP: nando BKFO w/TB , and SIJ dyfunction phase I, added TA/bridge and DKTC 02/03/24: TA bridge with hip ADD, sidelying hip abduction LTG Duration 12 wks-03/06/24 (PROGRESSING 02/03/24) Progress Towards Goals Progress Towards Goals Progressing Toward Goals,Slow Progress - Other Assessment Summary Assessment Pt tolerated session well. She requires increased time with activity due to difficulty with coordinating breathwork, core bracing, and for correct execution of exercise. Pt without pain at start and end of session, no reports of neural symptoms. However, pt very discouraged with PT progression, likely related to outside emotional and psychological factors. Pt with good feedback to sidelying hip abduction and bridge with ADD progression to target SIJ and promote lumbopelvic stability. Good muscle activation without increase in symptoms. Trialed staggered stance RDL to promote hip hinge and facilitate stability at SIJ, in addition to hip IR /ER with hip airplane. Pt's balance challenged and she has decreased hip mobility in L stance than R stance. Pt also demonstrates increased stiffness especially with L hip extension during gait. Pt would benefit from skilled PT for lumbopelvic stability and flexibility in order to improve symptom management and increase activity tolerance. Physical Therapy Plan Frequency and Duration Frequency of Treatment 2x/Week Duration of treatment (weeks) 12 Plan of Care Start Date 12/12/23 Plan of Care End Date 03/06/24 Therapeutic Interventions Therapeutic Interventions Home Exercise Program,Joint Mobilizations,Manual Therapy, Neuromuscular Re-education, Self-Care/Home Management,Soft Tissue Mobilization,Taping, Therapeutic Activities, Therapeutic Exercises Modalities Electric Stimulation Next Visit Focus/Plan Next Note Type Treatment Note Next Visit Plan Assess tolerance to new HEP (s /l hip abd, bridge w/ ADD), response to staggered RDL and airplane. Trial standing vs seated hip flex w/ band, hip IR in seated (add band if gavino well), step up, kickstand RDL, side steps Complete Sacral balancing. If needed, correction for L innom anterior rot. Next: Assess gait and transfer mechanics ( wbing) and continue ed and review in log roll transfers, & proper body mechanics for ADLs. POC: Manual therapy/JMT to Normalize pelvic position and stabilize; correct sacral/ lumbar spine L rotation and stabilize; STM to normalize left hip, improve hip flexor mobility and L>R L/S paraspinal ms tension, and improve core/hip strength. Modalities if needed for ms relaxation and pain management . She requires one cue for log roll from supine to sitting edge of bed, and expresses L hip feels better end of session.
--- NOTE | 2024-02-14 13:46 | PT.OTN ---
Current Diagnoses Low back pain, unspecified (02/14/24) Muscle weakness (generalized) (02/14/24) Abnormal posture (02/14/24) Physical Therapy Treatment Note PT-OP-A Visit Information Start: 12/12/23 08:12 Freq: Status: Active Protocol: Document 02/14/24 13:03 SP (Rec: 02/14/24 13:48 SP [id number]) Out-Patient Physical Therapy Visit Information Visit Information Visit Type Treatment Note Visit Start Time 13:03 Visit Stop Time 13:46 Visit Number 9 Number of LOSS PREVENTION SUPERVISOR Visits 1 Evaluation Information Evaluation Date 12/12/23 Precautions Precautions Depression controlled by meds. PT-OP-B Current Condition Start: 12/12/23 08:12 Freq: Status: Active Protocol: Document 12/12/23 08:20 LRN (Rec: 12/12/23 09:11 LRN [id number]) Current Condition History of Current Condition Onset Date 1 month ago Current Complaints Constant pn down the lateral LLE, worse in sitting, better standing/walking History of Current Condition Pt states she woke in the middle of the night with the L posterior deep hip pain that was pressent intermittently; then 3 wks later during the night she felt the pain down the lateral LLE that she states feels like a constant tera horse. Yesterday the pain became constant. She has been taking IBP (works at [employer]) every other day but doesn't feel it is helpful. She is now taking ms relaxors that helps her to get 3 hrs of sleep, then some sleep every hour. States it is more comfortable moving & walking rather than sitting. Prior Treatments and Tests IBP, now taking ms relaxors. Future Testing and Treatments Planned None Developmental History Developmental History Vaginal births: x 3, wo complications (reclined on birthing table). With first born child 30 yrs ago had R LE occasional pain. PMH: fx'd R lower leg above ankle age 50, L torn knee cartilage over 25 yrs ago. Treatment Goals Patient/Caregiver Goals Pt goal: Be able to sleep through the night. Be able to sit on plane ride to [facility] [place] (6 hrs). Personal Factors Other Personal Factors That May Effect Depression controlled with Therapy/Recovery meds, works at a [employer] . PT-OP-C Subjective Start: 12/12/23 08:12 Freq: Status: Active Protocol: Document 02/14/24 13:03 SP (Rec: 02/14/24 13:48 SP [id number]) OP-PT Subjective Patient Comments Patient Comments Pt reports when was on vacation her back felt better. She reported the new exercises added last tx for progression strength feels is helping and feels good past 2 days but want to review LE airplane dueto having back pain. She takes Gabapentin and will run out 1-2 weeks if keep taking 2/night but not want to be on and wonder if could slowly reduce but will talk to Dr Wilhelm nurse practioner soon follow up in 2 week and see what they think. She does think when pain was worse an emotional component. REports not feeling floppy ankles now. PT-OP-G Mobility & Gait Start: 12/12/23 08:12 Freq: Status: Active Protocol: Document 12/12/23 08:20 LRN (Rec: 12/12/23 09:11 LRN [id number]) OP Mobility Evaluation Bed Mobility Rolling L hip/LE pain rolling in bed Supine to and from Sit L hip/LE pain rolling in bed PT-OP-H Neuro Start: 12/12/23 08:12 Freq: Status: Active Protocol: Document 12/12/23 08:20 LRN (Rec: 12/12/23 09:11 LRN [id number]) Sensation Evaluation Gross Sensation Gross Sensation WNL Deep Tendon Reflex & Clonus Assessment Deep Tendon Reflex Bilateral Achilles Deep Tendon Reflex 0 Absent Right Patellar Deep Tendon Reflex 3+ Normal But Brisk Left Patellar Deep Tendon Reflex 2+ Normal PT-OP-J Posture/Palpation/Skin Start: 12/12/23 08:12 Freq: Status: Active Protocol: Document 12/12/23 08:20 LRN (Rec: 12/12/23 09:11 LRN [id number]) Posture Evaluation Position Standing Head/C-Spine Posture Forward Head L-Spine Posture Increased Lordosis,Shifted Left Shoulder Posture (L) Elevated Arm Posture (L) Internally Rotated,(R) Internally Rotated Weight Distribution Weight Shifted Right Knee Posture (L) Genu Valgus,(R) Genu Valgus,(L) Genu Recurvatum Foot Arch (L) Medium Arch,(R) Low Arch Comments Posture Comments Dowagers hump, Flattened mid thoracic, mild C-curve lumbar spine w/apex on L, mild valgus of knees. Mild L Genu Recurvatum. Palpation Assessment Location LE's at ankles Palpation Location R LE: Sup>Long sit moves long > equal length. Palpation Details L LE: Sup> long sit moves short > equal length (L innom Posterior rot, R innom anterior rot). Supine: high L ASIS, L Ischial tuberosity is inferior (L innom Seamer Operator rot). Sacrum & trunk L rotated, L hip posterior ms - soft tissue tightness. PT-OP-K Range of Motion Start: 12/12/23 08:12 Freq: Status: Active Protocol: Document 12/12/23 08:20 LRN (Rec: 12/12/23 09:11 LRN [id number]) Lumbar Spine Range of Motion Lumbar Spine Active Degrees Testing Position Standing Flexion 93 Extension 12 Rotation Left 15 Rotation Right 15 Lateral Flexion Left 15 Lateral Flexion Right 15 Comments Pain flexion Hip Goniometric Range of Motion Hip Right Passive Straight Leg Raise 100 Abduction 40 Internal Rotation 25 External Rotation 55 Left Passive Straight Leg Raise 90 Abduction 40 Internal Rotation 30 External Rotation 60 PT-OP-L Special Tests Start: 12/12/23 08:12 Freq: Status: Active Protocol: Document 12/17/23 13:03 LRN (Rec: 12/17/23 16:14 LRN [id number]) Special Tests Hip Special Tests Moreno Test Results + bilateral Comments Mild hip flexor tightness bilaterally. PT-OP-M Strength Start: 12/12/23 08:12 Freq: Status: Active Protocol: Document 02/03/24 08:18 NM (Rec: 02/03/24 09:28 NM [id number]) Trunk Strength Trunk Manual Muscle Testing Flexion 3+ Fair+ Extension 3+ Fair+ Rotation Left 3+ Fair+ Rotation Right 3+ Fair+ Hip Strength Hip Manual Muscle Testing Right Comments Hip strength is 5/5. Left Flexion (L2) 3+ Fair+ Abduction 4+ Good+ Internal Rotation 3+ Fair+ Comments evaluation: 3/5 hip flexion, 4 +/5 hip abduction, 3/5 hip IR. Hip strength is 5/5 except as indicated above. PT-OP-Q Treatments Start: 12/12/23 08:12 Freq: Status: Active Protocol: Document 02/14/24 13:03 SP (Rec: 02/14/24 13:48 SP [id number]) Therapeutic Exercises Supine Exercises TA/nando BKFO Supine Exercise Name DC easy can stabilize Equipment Used Lev 2 TB Reps/Minutes 10x ea Comments good pelvic alignment and core fac through range TA/bridge Supine Exercise Name Neutral spine positioning/TA/ bridge with hip ADD Equipment Used ball between knees Reps/Minutes 10 SH x5 Comments TA draw in, heels closer to buttocks, glut fac slight- no HS recruitment TA heel slides Supine Exercise Name improved contraction throughout range, no pelvic rock Side bilateral Resistance good form- 02/13 can DC easy Reps/Minutes x10 alternating Comments LOSS PREVENTION SUPERVISOR palpate good engagement. TA tightening Supine Exercise Name Pt palpating ASIS' to identify holding contraction Reps/Minutes 10 SH x10 pre bridge and assess LE mobility HEPs Comments improved engagement approx 30% with cuing Standing Exercises SL hip airplane Standing Exercise Name PT trialed SL hip ext then, pelvis lower/elevate: airplane Resistance AROM Equipment Used UE contact counter, hip ext Reps/Minutes 5 reps Comments DC today due to report pain response post 02/02 tx. RDL Standing Exercise Name 1. stride stance RDL 2. airplane (ext&open hip/LS rot) > change hip ext Side bilateral Resistance 1. 3#DB- hip hinge row 2. airplane ext/open> only ext Equipment Used 1. trunk flex/ext 2. BUE plank on counter, straight back hip hinge & LE ext Reps/Minutes 1. 2x10 ea, 2. 5 ea side- better painfree reported Comments requires increased time for proper form, cued TA, back straight hip hinge Manual Therapy Treatment Consent Patient gave verbal consent for manual Yes treatment Soft Tissue Mobilization Sacral Balancing Comments fine- no need assist 02/13 PT-OP-T Assessment and Plan Start: 12/12/23 08:12 Freq: Status: Active Protocol: Document 02/14/24 13:03 SP (Rec: 02/14/24 13:48 SP [id number]) Physical Therapy Assessment Goals Three Impairment Pt is not able to tolerate sitting due to L sciatic pain Impairment Pelvic obliquity: L innom anterior rot/R innom posterior rot. Short Term Goal (STG) Pt will be educated in proper sitting posture with normal pelvic positioning (correct L innom anterior rot/R innom posterior rot). 12/17/23: Supine correction of rotated L innominate. 12/19/23: Pt self corrected L innomate rotation. Pt educated in proper sit posturing with normal pelvic positioning. STG Duration 5 wks-01/17/24 (12/19/23: MET GOAL) Usp Goal (LTG) Pt will be able to sit for > 1 -2 hrs at a time to be able to tolerated a plane ride to [facility] [place] (6 hrs). 02/03/24: Pt reports ability to sit for >6 hours without increase in pain LTG Duration 12 wks-03/06/24 (PROGRESSING ) Two Impairment L Sciatic pain interrupting pt sleeping ability Impairment Pt was able to sleep through the night, 3-4 hrs at a time. Short Term Goal (STG) Pt will be educated in best practice positioning and posture corrections to relieve L sciatic pain. 12/17/23: Pt educated in best practice positioning for nighttime sleeping position. STG Duration 3 wks-01/03/24 progressed (need educ posture sitting/standing) Usp Goal (LTG) Pt will be able to sleep 3-4 hrs through the night without interruptions due to L LE pain . 12/19/23: Pt able to sleep through the night w/o pain ( except for waking for bladder) after starting Gabapentin medication 02/03/24: Pt pain is waking her at 4 am, must stretch to go back to sleep LTG Duration 12 wks-03/06/24 (PROGRESSING 02/03/24) One Impairment Pt lacks appropriate self care HEP. Short Term Goal (STG) Pt will be educated in log roll transfers, & proper body mechanics for ADLs. 12/17/23: Pt educted rolling in bed side<>side with core stabilized (TA tight). 01/01/2024 Reviews log roll continued cues to avoid twisting and to relax head on pillow. 01/08/2024: Review of log roll to exit bed and edu focus on log roll to enter bed and also to position self on couch; focus on swinging legs up together as shoulder lowers ( pendulum movement). STG Duration 2 wks-12/27/23 progressed 12/17/23 Turkey Egg Gatherer Goal (LTG) Pt will be independent in an effective self care HEP for pelvic/core/hip strengthening and mobility ex's. 12/17/23: HEP: core stab of supine TA tight, TA/heel slide ; TA clamshell, & standing Iliopsoas stretch. 12/19/23: HEP: nando BKFO w/TB , and SIJ dyfunction phase I, added TA/bridge and DKTC 02/03/24: TA bridge with hip ADD, sidelying hip abduction, stride stance RDL & LE airplane. 02/14/24: DC TA HS and KFO not needed continue. Cued heels closer and slight glut fac during tolerant bridge for inhibit HS cramping. LTG Duration 12 wks-03/06/24 (PROGRESSING 02/14/24) Assessment Summary Assessment LOSS PREVENTION SUPERVISOR unable to assess pt pelvic alignment in standing, noted level pelvic alignment and neutral in supine so no need and not request need for manual today, pt given permission contact assessment. Pt improved TA and neutral spine, DC TA heel slide and KFO today not needed to perform, easy. Cues for modification foot position for bridge, slow pace tolerant range to inhibit HS recruitment. Modified LE airplane previously given> changed to LE ext /c TA fac ( plank on counter) good feedback response elevate for glut fac no LB arch for core progression functional mobility. Physical Therapy Plan Frequency and Duration Frequency of Treatment 2x/Week Duration of treatment (weeks) 12 Plan of Care Start Date 12/12/23 Plan of Care End Date 03/06/24 Therapeutic Interventions Therapeutic Interventions Home Exercise Program,Joint Mobilizations,Manual Therapy, Neuromuscular Re-education, Self-Care/Home Management,Soft Tissue Mobilization,Taping, Therapeutic Activities, Therapeutic Exercises Modalities Electric Stimulation Next Visit Focus/Plan Next Note Type Treatment Note Next Visit Plan Assess tolerance to new HEP (s /l hip ext plank on counter, bridge w/ ADD), response to staggered RDL. Trial standing vs seated hip flex w/ band, hip IR in seated (add band if gavino well), step up, kickstand RDL, side steps Complete Sacral balancing. If needed, correction for L innom anterior rot. Next: LOSS PREVENTION SUPERVISOR discussed pt can add more appts until next scheduled with PT 02/26. POC: Assess gait and transfer mechanics (wbing) and continue ed and review in log roll transfers, & proper body mechanics for ADLs. POC: Manual therapy/JMT to Normalize pelvic position and stabilize; correct sacral/ lumbar spine L rotation and stabilize as needed; STM to normalize left hip, improve hip flexor mobility and L>R L/ S paraspinal ms tension, and improve core/hip strength. Modalities if needed for ms relaxation and pain management . She requires one cue for log roll from supine to sitting edge of bed, and expresses L hip feels better end of session.
--- NOTE | 2024-02-21 15:15 | PT.OTN ---
Current Diagnoses Low back pain, unspecified (02/21/24) Muscle weakness (generalized) (02/21/24) Abnormal posture (02/21/24) Physical Therapy Treatment Note PT-OP-A Visit Information Start: 12/12/23 08:12 Freq: Status: Active Protocol: Document 02/21/24 14:35 SP (Rec: 02/21/24 16:00 SP [id number]) Out-Patient Physical Therapy Visit Information Visit Information Visit Type Treatment Note Visit Note 09/14 post PN (completed by PT Reta 02/02) Visit Start Time 14:35 Visit Stop Time 15:15 Visit Number 10 Number of SENIOR SALESFORCE DEVELOPER Visits 2 Evaluation Information Evaluation Date 12/12/23 Precautions Precautions Depression controlled by meds. PT-OP-B Current Condition Start: 12/12/23 08:12 Freq: Status: Active Protocol: Document 12/12/23 08:20 LRN (Rec: 12/12/23 09:11 LRN [id number]) Current Condition History of Current Condition Onset Date 1 month ago Current Complaints Constant pn down the lateral LLE, worse in sitting, better standing/walking History of Current Condition Pt states she woke in the middle of the night with the L posterior deep hip pain that was pressent intermittently; then 3 wks later during the night she felt the pain down the lateral LLE that she states feels like a constant tera horse. Yesterday the pain became constant. She has been taking IBP (works at [employer] every other day but doesn't feel it is helpful. She is now taking ms relaxors that helps her to get 3 hrs of sleep, then some sleep every hour. States it is more comfortable moving & walking rather than sitting. Prior Treatments and Tests IBP, now taking ms relaxors. Future Testing and Treatments Planned None Developmental History Developmental History Vaginal births: x 3, wo complications (reclined on birthing table). With first born child 30 yrs ago had R LE occasional pain. PMH: fx'd R lower leg above ankle age 50, L torn knee cartilage over 25 yrs ago. Treatment Goals Patient/Caregiver Goals Pt goal: Be able to sleep through the night. Be able to sit on plane ride to [facility] [place] [facility] 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 PT-OP-C Subjective Start: 12/12/23 08:12 Freq: Status: Active Protocol: Document 02/21/24 14:35 SP (Rec: 02/21/24 16:00 SP [id number]) OP-PT Subjective Patient Comments Patient Comments Pt reports it has been over a week of no pain since last tx. 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 She is compliant with HEP using HOs. Sleeping approx 8 hrs with out waking up because of any pain as had when first started PT. She is nervous in her past did well for a while then got more active and had a set back of pain. Wondering how much longer need PT. PT-OP-G Mobility & Gait Start: 12/12/23 08:12 Freq: Status: Active Protocol: Document 12/12/23 08:20 LRN (Rec: 12/12/23 09:11 LRN [id number]) OP Mobility Evaluation Bed Mobility Rolling L hip/LE pain rolling in bed Supine to and from Sit L hip/LE pain rolling in bed PT-OP-H Neuro Start: 12/12/23 08:12 Freq: Status: Active Protocol: Document 12/12/23 08:20 LRN (Rec: 12/12/23 09:11 LRN [id number]) Sensation Evaluation Gross Sensation Gross Sensation WNL Deep Tendon Reflex & Clonus Assessment Deep Tendon Reflex Bilateral Achilles Deep Tendon Reflex 0 Absent Right Patellar Deep Tendon Reflex 3+ Normal But Brisk Left Patellar Deep Tendon Reflex 2+ Normal PT-OP-J Posture/Palpation/Skin Start: 12/12/23 08:12 Freq: Status: Active Protocol: Document 12/12/23 08:20 LRN (Rec: 12/12/23 09:11 LRN [id number]) Posture Evaluation Position Standing Head/C-Spine Posture Forward Head L-Spine Posture Increased Lordosis,Shifted Left Shoulder Posture (L) Elevated Arm Posture (L) Internally Rotated,(R) Internally Rotated Weight Distribution Weight Shifted Right Knee Posture (L) Genu Valgus,(R) Genu Valgus,(L) Genu Recurvatum Foot Arch (L) Medium Arch,(R) Low Arch Comments Posture Comments Dowagers hump, Flattened mid thoracic, mild C-curve lumbar spine w/apex on L, mild valgus of knees. Mild L Genu Recurvatum. Palpation Assessment Location LE's at ankles Palpation Location R LE: Sup>Long sit moves long > equal length. Palpation Details L LE: Sup> long sit moves short > equal length (L innom Posterior rot, R innom anterior rot). Supine: high L ASIS, L Ischial tuberosity is inferior (L innom Access Analyst rot). Sacrum & trunk L rotated, L hip posterior ms - soft tissue tightness. PT-OP-K Range of Motion Start: 12/12/23 08:12 Freq: Status: Active Protocol: Document 12/12/23 08:20 LRN (Rec: 12/12/23 09:11 LRN [id number]) Lumbar Spine Range of Motion Lumbar Spine Active Degrees Testing Position Standing Flexion 93 Extension 12 Rotation Left 15 Rotation Right 15 Lateral Flexion Left 15 Lateral Flexion Right 15 Comments Pain flexion Hip Goniometric Range of Motion Hip Right Passive Straight Leg Raise 100 Abduction 40 Internal Rotation 25 External Rotation 55 Left Passive Straight Leg Raise 90 Abduction 40 Internal Rotation 30 External Rotation 60 PT-OP-L Special Tests Start: 12/12/23 08:12 Freq: Status: Active Protocol: Document 12/17/23 13:03 LRN (Rec: 12/17/23 16:14 LRN [id number]) Special Tests Hip Special Tests Moreno Test Results + bilateral Comments Mild hip flexor tightness bilaterally. PT-OP-M Strength Start: 12/12/23 08:12 Freq: Status: Active Protocol: Document 02/03/24 08:18 NM (Rec: 02/03/24 09:28 NM [id number]) Trunk Strength Trunk Manual Muscle Testing Flexion 3+ Fair+ Extension 3+ Fair+ Rotation Left 3+ Fair+ Rotation Right 3+ Fair+ Hip Strength Hip Manual Muscle Testing Right Comments Hip strength is 5/5. Left Flexion (L2) 3+ Fair+ Abduction 4+ Good+ Internal Rotation 3+ Fair+ Comments evaluation: 3/5 hip flexion, 4 +/5 hip abduction, 3/5 hip IR. Hip strength is 5/5 except as indicated above. PT-OP-Q Treatments Start: 12/12/23 08:12 Freq: Status: Active Protocol: Document 02/21/24 14:35 SP (Rec: 02/21/24 16:00 SP [id number]) Therapeutic Exercises Standing Exercises Modified bird dog Standing Exercise Name LE only> Added UE and LE bird dog off counter (HEP reviewed) Side bilateral Equipment Used BUE in counter Reps/Minutes 10 reps alternating Comments Able to incorporate UE addition, painfree range RDL Standing Exercise Name stride stance RDL- see HO Side bilateral Resistance 3#DB- hip hinge Equipment Used trunk flex/ext with support TA and soft BLE support Reps/Minutes 2x10 reps Comments extra time spent stance neutral spine, LE DAV, hip hinge BLE LE recruit Therapeutic Activity Therapeutic Activity Body Mechanics Name Much time spent on Education and return demo performance Reps/Minutes 21 min Comments -Use Posture & Pounds image how much weight added to spine when trunk/neck flexed forward. -Instruction straight back hip hinge and wt shift split stance, WBOS for sweeping, painting with preferrable longer handle vs 1/2 kneel wt shift between BLEs for LE muscular effort vs LB small micromovements with rounded posture initially shown SENIOR SALESFORCE DEVELOPER. Improvement use trek pole ( assimulate broom/ long handles mechatronics technologist) BUEs, wt shift between each LE -Hip Hinge squat picker and sorter load and unload basket or 10# DB close to body for items yard work with better mechanics, reports less back tension. Cued to for spinal alignment and TA and scap retraction support. Self-Care/Home Management Treatment Education Patient Education Body Mechanics,Home Exercise Program,Pain Management Other Education 11min: Body mechanics, time doing project may need rest and recovery. Use long handles tools if needed limit how much bending support back. Continue log roll even if no pain for spinal support. PT-OP-T Assessment and Plan Start: 12/12/23 08:12 Freq: Status: Active Protocol: Document 02/21/24 14:35 SP (Rec: 02/21/24 16:00 SP [id number]) Physical Therapy Assessment Goals Three Impairment Pt is not able to tolerate sitting due to L sciatic pain Impairment Pelvic obliquity: L innom anterior rot/R innom posterior rot. Short Term Goal (STG) Pt will be educated in proper sitting posture with normal pelvic positioning (correct L innom anterior rot/R innom posterior rot). 12/17/23: Supine correction of rotated L innominate. 12/19/23: Pt self corrected L innomate rotation. Pt educated in proper sit posturing with normal pelvic positioning. STG Duration 5 wks-01/17/24 (12/19/23: MET GOAL) Freight Solicitor Goal (LTG) Pt will be able to sit for > 1 -2 hrs at a time to be able to tolerated a plane ride to [facility] [place] [facility] [place]). 02/03/24: Pt reports ability to sit for >6 hours without increase in pain 02/21/24: GOAL Met: Continues to not experience pain sitting . LTG Duration 12 wks-03/06/24 MET GOAL Two Impairment L Sciatic pain interrupting pt sleeping ability Impairment Pt was able to sleep through the night, 3-4 hrs at a time. Short Term Goal (STG) Pt will be educated in best practice positioning and posture corrections to relieve L sciatic pain. 12/17/23: Pt educated in best practice positioning for nighttime sleeping position. 02/21/24: MET GOAL still taking Gabapentin will talk to Dr Wilhelm maybe lower dose or continued for trip [facility] [place] [facility] [place] to be sure if needed has on hand with long trip. SHe hasn't been sitting any length time so unsure if pain sleeping 8 h rs and no pain when wakes up. STG Duration 3 wks-01/03/24 GOAL MET [facility] Goal (LTG) Pt will be able to sleep 3-4 hrs through the night without interruptions due to L LE pain . 12/19/23: Pt able to sleep through the night w/o pain ( except for waking for bladder) after starting Gabapentin medication 02/03/24: Pt pain is waking her at 4 am, must stretch to go back to sleep 02/21/24: GOAL MET: no leg pain nor pain that wakes her up at night, sleeping approx 8 hrs feeling refreshed but also taking Gabapentin 2>1 tab 150 mg past 2 nights. LTG Duration 12 wks-03/06/24 GOAl MET 02/20 One Impairment Pt lacks appropriate self care HEP. Short Term Goal (STG) Pt will be educated in log roll transfers, & proper body mechanics for ADLs. 12/17/23: Pt educted rolling in bed side<>side with core stabilized (TA tight). 01/01/2024 Reviews log roll continued cues to avoid twisting and to relax head on pillow. 01/08/2024: Review of log roll to exit bed and edu focus on log roll to enter bed and also to position self on couch; focus on swinging legs up together as shoulder lowers ( pendulum movement). 02/21/24: Cues for log roll technique demonstrates sitting straight up from supiine and laying down but no pain reported. STG Duration 2 wks-12/27/23 progressing 02/21/24 Freight Solicitor Goal (LTG) Pt will be independent in an effective self care HEP for pelvic/core/hip strengthening and mobility ex's. 12/17/23: HEP: core stab of supine TA tight, TA/heel slide ; TA clamshell, & standing Iliopsoas stretch. 12/19/23: HEP: nando BKFO w/TB , and SIJ dyfunction phase I, added TA/bridge and DKTC 02/03/24: TA bridge with hip ADD, sidelying hip abduction, stride stance RDL & LE airplane. 02/14/24: DC TA HS and KFO not needed continue. Cued heels closer and slight glut fac during tolerant bridge for inhibit HS cramping. 02/21/24: review split stance RDL then carryover body mechanics straight back, hip hinge and wt shift between BLEs savory back health, use posture and pounds image for awareness gravity added weight on posterior chain when flexed forward. LTG Duration 12 wks-03/06/24 (PROGRESSING 02/21/24) Progress Towards Goals Progress Towards Goals Progressing Toward Goals Progress Comments MET STG & LTG 2 & 3. Progressing Goal 1 with continued education on mechanics of mobility for back health carry over into daily activity projects. Assessment Summary Assessment Pt has made gains with goals, significant reduction in pain, able sleep 8 hrs with out waking up with pain. Pt responded well, verbalized understanding and return demonstration improved body mechanics with much time education spinal alignment squat vs 1/2 kneel positioning for project (scrapping/ painting deck) to reduce strain on back and less tightness in back, rest break also important for recovery. Pt demontrated RDL ( assimulated picking up items) with improved use BLEs. Pt tolerated addition of UE ext with LE extention off counter for core with standing stability. Pt would benefit from 1 more appt with PT to review HEP and body mechanics and possible DC to HEP. Physical Therapy Plan Frequency and Duration Frequency of Treatment 2x/Week Duration of treatment (weeks) 12 Plan of Care Start Date 12/12/23 Plan of Care End Date 03/06/24 Therapeutic Interventions Therapeutic Interventions Home Exercise Program,Joint Mobilizations,Manual Therapy, Neuromuscular Re-education, Self-Care/Home Management,Soft Tissue Mobilization,Taping, Therapeutic Activities, Therapeutic Exercises Modalities Electric Stimulation Next Visit Focus/Plan Next Note Type Discharge Summary Next Visit Plan Possible DC after next appt with PT. See assessment. Next Review HEP needed. Complete Sacral balancing if needed. POC: improve core/hip strength . Body Mechanics, HO if needed .
--- NOTE | 2024-02-27 12:20 | PT.OTN ---
Current Diagnoses Low back pain, unspecified (02/27/24) Muscle weakness (generalized) (02/27/24) Abnormal posture (02/27/24) Physical Therapy Treatment Note PT-OP-A Visit Information Start: 12/12/23 08:12 Freq: Status: Active Protocol: Document 02/27/24 09:54 LRN (Rec: 02/27/24 12:19 LRN [id number]) Out-Patient Physical Therapy Visit Information Visit Information Visit Type Treatment Note Visit Note 10/15 post PN Visit Start Time 09:54 Visit Stop Time 10:34 Visit Number 11 Evaluation Information Evaluation Date 12/12/23 Precautions Precautions Depression controlled by meds. PT-OP-B Current Condition Start: 12/12/23 08:12 Freq: Status: Active Protocol: Document 12/12/23 08:20 LRN (Rec: 12/12/23 09:11 LRN [id number]) Current Condition History of Current Condition Onset Date 1 month ago Current Complaints Constant pn down the lateral LLE, worse in sitting, better standing/walking History of Current Condition Pt states she woke in the middle of the night with the L posterior deep hip pain that was pressent intermittently; then 3 wks later during the night she felt the pain down the lateral LLE that she states feels like a constant tera horse. Yesterday the pain became constant. She has been taking IBP (works at [employer]) every other day but doesn't feel it is helpful. She is now taking ms relaxors that helps her to get 3 hrs of sleep, then some sleep every hour. States it is more comfortable moving & walking rather than sitting. Prior Treatments and Tests IBP, now taking ms relaxors. Future Testing and Treatments Planned None Developmental History Developmental History Vaginal births: x 3, wo complications (reclined on birthing table). With first born child 30 yrs ago had R LE occasional pain. PMH: fx'd R lower leg above ankle age 50, L torn knee cartilage over 25 yrs ago. Treatment Goals Patient/Caregiver Goals Pt goal: Be able to sleep through the night. Be able to sit on plane ride to [facility] (6 hrs). Personal Factors Other Personal Factors That May Effect Depression controlled with Therapy/Recovery meds, works at a [employer] . PT-OP-C Subjective Start: 12/12/23 08:12 Freq: Status: Active Protocol: Document 02/27/24 09:54 LRN (Rec: 02/27/24 12:19 LRN [id number]) OP-PT Subjective Patient Comments Patient Comments 2.5 wks w/o pain. Seeing Dr. Wilhelm after PT. Going to [facility] Mar 17, and will ask for GABAPENTIN> PT-OP-G Mobility & Gait Start: 12/12/23 08:12 Freq: Status: Active Protocol: Document 12/12/23 08:20 LRN (Rec: 12/12/23 09:11 LRN [id number]) OP Mobility Evaluation Bed Mobility Rolling L hip/LE pain rolling in bed Supine to and from Sit L hip/LE pain rolling in bed PT-OP-H Neuro Start: 12/12/23 08:12 Freq: Status: Active Protocol: Document 12/12/23 08:20 LRN (Rec: 12/12/23 09:11 LRN [id number]) Sensation Evaluation Gross Sensation Gross Sensation WNL Deep Tendon Reflex & Clonus Assessment Deep Tendon Reflex Bilateral Achilles Deep Tendon Reflex 0 Absent Right Patellar Deep Tendon Reflex 3+ Normal But Brisk Left Patellar Deep Tendon Reflex 2+ Normal PT-OP-J Posture/Palpation/Skin Start: 12/12/23 08:12 Freq: Status: Active Protocol: Document 12/12/23 08:20 LRN (Rec: 12/12/23 09:11 LRN [id number]) Posture Evaluation Position Standing Head/C-Spine Posture Forward Head L-Spine Posture Increased Lordosis,Shifted Left Shoulder Posture (L) Elevated Arm Posture (L) Internally Rotated,(R) Internally Rotated Weight Distribution Weight Shifted Right Knee Posture (L) Genu Valgus,(R) Genu Valgus,(L) Genu Recurvatum Foot Arch (L) Medium Arch,(R) Low Arch Comments Posture Comments Dowagers hump, Flattened mid thoracic, mild C-curve lumbar spine w/apex on L, mild valgus of knees. Mild L Genu Recurvatum. Palpation Assessment Location LE's at ankles Palpation Location R LE: Sup>Long sit moves long > equal length. Palpation Details L LE: Sup> long sit moves short > equal length (L innom Posterior rot, R innom anterior rot). 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 Sacrum & trunk L rotated, L hip posterior ms - soft tissue tightness. PT-OP-K Range of Motion Start: 12/12/23 08:12 Freq: Status: Active Protocol: Document 12/12/23 08:20 LRN (Rec: 12/12/23 09:11 LRN [id number]) Lumbar Spine Range of Motion Lumbar Spine Active Degrees Testing Position Standing Flexion 93 Extension 12 Rotation Left 15 Rotation Right 15 Lateral Flexion Left 15 Lateral Flexion Right 15 Comments Pain flexion Hip Goniometric Range of Motion Hip Right Passive Straight Leg Raise 100 Abduction 40 Internal Rotation 25 External Rotation 55 Left Passive Straight Leg Raise 90 Abduction 40 Internal Rotation 30 External Rotation 60 PT-OP-L Special Tests Start: 12/12/23 08:12 Freq: Status: Active Protocol: Document 12/17/23 13:03 LRN (Rec: 12/17/23 16:14 LRN [id number]) Special Tests Hip Special Tests Moreno Test Results + bilateral Comments Mild hip flexor tightness bilaterally. PT-OP-M Strength Start: 12/12/23 08:12 Freq: Status: Active Protocol: Document 02/03/24 08:18 NM (Rec: 02/03/24 09:28 NM [id number]) Trunk Strength Trunk Manual Muscle Testing Flexion 3+ Fair+ Extension 3+ Fair+ Rotation Left 3+ Fair+ Rotation Right 3+ Fair+ Hip Strength Hip Manual Muscle Testing Right Comments Hip strength is 5/5. Left Flexion (L2) 3+ Fair+ Abduction 4+ Good+ Internal Rotation 3+ Fair+ Comments evaluation: 3/5 hip flexion, 4 +/5 hip abduction, 3/5 hip IR. Hip strength is 5/5 except as indicated above. PT-OP-Q Treatments Start: 12/12/23 08:12 Freq: Status: Active Protocol: Document 02/27/24 09:54 LRN (Rec: 02/27/24 12:19 LRN [id number]) Therapeutic Exercises Supine Exercises Modified Moreno stretch Supine Exercise Name Leg off side of plinth Side left Reps/Minutes 30 piriformis stretch Supine Exercise Name Knee to opp shdr Side bilateral Reps/Minutes 30 stretch review figure 4 stretch Supine Exercise Name FIg 4 stretch Side bilateral Reps/Minutes 2' DKTC stretch Supine Exercise Name KTC stretch Side bilateral Reps/Minutes 2' Sitting Exercises figure 4 stretch Side bilateral Reps/Minutes one minute X 1 Comments verbal cues Standing Exercises Modified bird dog Standing Exercise Name LE only> Added UE and LE bird dog off counter (HEP reviewed) Side bilateral Equipment Used BUE in counter Reps/Minutes 10 reps alternating Comments Able to incorporate UE addition, painfree range RDL Standing Exercise Name reviewed Korean Lift ex . Side bilateral Resistance 2# - hip hinging Equipment Used trunk flex/ext with support TA and soft BLE support Reps/Minutes 10x 2 Comments Extra time for review Therapeutic Activity Therapeutic Activity Sit<>Supine Name Log roll transfer training Reps/Minutes 8' Comments Cued through transfer process. Body Mechanics Name Body mechanics straining for ADLs, and BM Basics Reps/Minutes 15' Comments Reviewed resting positioning, stanidng/sitting posturing & mvmt for bending and lifting, turning and reaching. PT-OP-T Assessment and Plan Start: 12/12/23 08:12 Freq: Status: Active Protocol: Document 02/27/24 09:54 LRN (Rec: 02/27/24 12:19 LRN [id number]) Physical Therapy Assessment Goals Three Impairment Pt is not able to tolerate sitting due to L sciatic pain Impairment Pelvic obliquity: L innom anterior rot/R innom posterior rot. Short Term Goal (STG) Pt will be educated in proper sitting posture with normal pelvic positioning (correct L innom anterior rot/R innom posterior rot). 12/17/23: Supine correction of rotated L innominate. 12/19/23: Pt self corrected L innomate rotation. Pt educated in proper sit posturing with normal pelvic positioning. STG Duration 5 wks-01/17/24 (12/19/23: MET GOAL) Whipped Topping Supervisor Goal (LTG) Pt will be able to sit for > 1 -2 hrs at a time to be able to tolerated a plane ride to [facility] (6 hrs). 02/03/24: Pt reports ability to sit for >6 hours without increase in pain 02/21/24: GOAL Met: Continues to not experience pain sitting . LTG Duration 12 wks-03/06/24 (MET GOAL ) Two Impairment L Sciatic pain interrupting pt sleeping ability Impairment Pt was able to sleep through the night, 3-4 hrs at a time. Short Term Goal (STG) Pt will be educated in best practice positioning and posture corrections to relieve L sciatic pain. 12/17/23: Pt educated in best practice positioning for nighttime sleeping position. 02/21/24: MET GOAL still taking Gabapentin will talk to Dr Wilhelm maybe lower dose or continued for trip [facility] Mar 16 to be sure if needed has on hand with long trip. SHe hasn't been sitting any length time so unsure if pain sleeping 8 h rs and no pain when wakes up. STG Duration 3 wks-01/03/24 (GOAL MET 02/20) Mcfp Goal (LTG) Pt will be able to sleep 3-4 hrs through the night without interruptions due to L LE pain . 12/19/23: Pt able to sleep through the night w/o pain ( except for waking for bladder) after starting Gabapentin medication 02/03/24: Pt pain is waking her at 4 am, must stretch to go back to sleep 02/21/24: GOAL MET: no leg pain nor pain that wakes her up at night, sleeping approx 8 hrs feeling refreshed but also taking Gabapentin 2>1 tab 150 mg past 2 nights. LTG Duration 12 wks-03/06/24 (GOAL MET ) One Impairment Pt lacks appropriate self care HEP. Short Term Goal (STG) Pt will be educated in log roll transfers, & proper body mechanics for ADLs. 12/17/23: Pt educted rolling in bed side<>side with core stabilized (TA tight). 01/01/2024 Reviews log roll continued cues to avoid twisting and to relax head on pillow. 01/08/2024: Review of log roll to exit bed and edu focus on log roll to enter bed and also to position self on couch; focus on swinging legs up together as shoulder lowers ( pendulum movement). 02/21/24: Cues for log roll technique demonstrates sitting straight up from supiine and laying down but no pain reported. 02/27/24: Review of log roll transfers, & proper body mechanics for ADLs. STG Duration 2 wks-12/27/23 (02/27/24: MET GOAL) Mcfp Goal (LTG) Pt will be independent in an effective self care HEP for pelvic/core/hip strengthening and mobility ex's. 12/17/23: HEP: core stab of supine TA tight, TA/heel slide ; TA clamshell, & standing Iliopsoas stretch. 12/19/23: HEP: nando BKFO w/TB , and SIJ dyfunction phase I, added TA/bridge and DKTC 02/03/24: TA bridge with hip ADD, sidelying hip abduction, stride stance RDL & LE airplane. 02/14/24: DC TA HS and KFO not needed continue. Cued heels closer and slight glut fac during tolerant bridge for inhibit HS cramping. 02/21/24: review split stance RDL then carryover body mechanics straight back, hip hinge and wt shift between BLEs savory back health, use posture and pounds image for awareness gravity added weight on posterior chain when flexed forward. LTG Duration 12 wks-03/06/24 (PROGRESSING 02/21/24) Assessment Summary Assessment Pt attends with no c/o back pain for the past 2.5 weeks and feels ready for DC to HEP. Pt demonstrates good knowledge of her HEP, but needed a little review of recent HEP of bird dog & RDL ex. The pt is now ready for DC to her HEP. Pt goals met. Physical Therapy Plan Discharge Physical Therapy Discharge Reasons Goals Met Discharge Comments Thank you for your referral.
== END 2024-03-13 10:39 | disposition home or self-care (01) ==
LOC: PHYS 09:45
PROVIDERS: Family Provider Family Medicine; PCP Family Medicine; Referring Provider Nurse Practitioner Family; Visit Provider Nurse Practitioner Family
DX: M54.50 Low back pain, unspecified (principal); M62.81 Muscle weakness (generalized); R29.3 Abnormal posture
CPT/HCPCS: 97110; 97140; 97162; 97530; 97535

== ENCOUNTER → 2024-02-27 13:30 | Outpatient (CLI) | payer OTHER, SELFPAY ==
--- NOTE | 2024-02-27 13:31 | DI.RAD.S_ITS ---
PROCEDURE: XR LUMBAR SPINE 2-3V INDICATIONS: Chronic low back pain TECHNIQUE: 3 views of the lumbar spine were acquired. COMPARISON: None. FINDINGS: Bones: 5 [id number] vertebrae are present. There is trace retrolisthesis L5-S1. Severe disc and foraminal narrowing are present L5-S1. No vertebral body compression fractures. No suspicious bony lesions. Soft tissues: Overlying bowel gas pattern is normal. No suspicious soft tissue calcifications. IMPRESSION: Degenerative changes most severe at L5-S1. Dictated by: Qian Bauman M.D. on 02/27/2024 at 21:01 Approved by: Qian Bauman M.D. on 02/27/2024 at 21:06
== END ==
PROVIDERS: Family Provider Family Medicine; PCP Family Medicine; Referring Provider Family Medicine; Visit Provider Family Medicine
DX: M47.817 Spondylosis without myelopathy or radiculopathy, lumbosacral region (principal); M25.552 Pain in left hip; M54.50 Low back pain, unspecified
CPT/HCPCS: 72100

== ENCOUNTER → 2024-03-12 10:31 | Outpatient (CLI) | payer OTHER, SELFPAY ==
--- NOTE | 2024-03-12 11:00 | DI.MRI.S_ITS ---
PROCEDURE: MR LUMBAR SPINE WO CON INDICATIONS: severe lumbar arthritis TECHNIQUE: Noncontrast sagittal T1 spin echo and T2 fast echo, sagittal STIR, and T2 fast spin echo through the lumbar spine. In cases with scoliosis, additional coronal T2 fast spin echo may be performed. COMPARISON: [facility], CR, XR LUMBAR SPINE 2-3V, 02/27/2024, 12:41. FINDINGS: Image quality: Excellent. Alignment and Curvature: There is normal bony alignment. Bone Marrow: Type 2 Modic endplate changes at L5-S1 endplate level. Marrow is otherwise of normal overall signal. No acute vertebral body compression fractures. Spinal Cord: Conus medullaris terminates at the T12-L1 level. Visualized cord demonstrates normal signal and size. Paraspinous Soft Tissues: No paravertebral masses. Mild paraspinal muscle atrophy. T12-L1: Mild disc bulge. No central canal stenosis. No foraminal stenosis. L1-L2: Mild diffuse disc bulge. Mild central canal stenosis. No foraminal stenosis. L2-L3: No significant disc bulge. No central canal stenosis. No foraminal stenosis. L3-L4: Mild diffuse disc bulge. Mild central canal stenosis. No foraminal stenosis. L4-L5: Mild disc bulge and ligamentum flavum hypertrophy, resulting in moderate central canal stenosis. No foraminal stenosis L5-S1: No significant disc bulge. No central canal stenosis. No right foraminal stenosis. Mild left foraminal stenosis. Other: Moderate bilateral facet arthropathy at L4-L5 and L5-S1 with adjacent subcutaneous edema (4/6). Otherwise, mild multilevel facet arthropathy IMPRESSION: 1. Moderate central canal stenosis at L4-5. 2. Moderate bilateral facet arthropathy at L4-L5 and L5-S1 with adjacent reactive subcutaneous edema. Please correlate with point tenderness to assess for the possibility facet joint-related pain. Dictated by: Sean Roman M.D. on 03/12/2024 at 17:45 Approved by: Sean Roman M.D. on 03/12/2024 at 17:54
== END ==
PROVIDERS: Family Provider Family Medicine; PCP Family Medicine; Referring Provider Family Medicine; Visit Provider Family Medicine
DX: M47.816 Spondylosis without myelopathy or radiculopathy, lumbar region (principal); M47.817 Spondylosis without myelopathy or radiculopathy, lumbosacral region; M48.061 Spinal stenosis, lumbar region without neurogenic claudication; M48.07 Spinal stenosis, lumbosacral region; M51.36 Other intervertebral disc degeneration, lumbar region; M51.37 Other intervertebral disc degeneration, lumbosacral region
CPT/HCPCS: 72148

== ENCOUNTER → 2024-11-09 10:07 | Outpatient (CLI) | payer OTHER, SELFPAY ==
--- NOTE | 2024-11-09 10:08 | DI.RAD.S_ITS ---
PROCEDURE: XR DEXA AXIAL SKELETON INDICATIONS: screening for osteoporosis COMPARISON: None. FINDINGS: Lumbar Spine: Bone mineral density 1.000 g/cm2, T score -0.4. Left Femoral Neck: Bone mineral density 0.620 g/cm2, T score -2.1. Left Hip: Bone mineral density 0.721 g/cm2, T score -1.8. Fracture Risk Calculation (when applicable): 10-year fracture risk of a major osteoporotic fracture 11 percent and of a hip fracture 1.7 percent. (T score greater or equal to -1.0 to: NORMAL) (T score from -1.1 to -2.4: OSTEOPENIA) (T score less than or equal to -2.5: OSTEOPOROSIS) IMPRESSION: Low bone mineral density (osteopenia) by WHO classification. Follow-up guidelines as follows: Osteoporosis: Consider a repeat DEXA and Vertebral Fracture Assessment (VFA) exam in 2 years or sooner if medically necessary, to reassess this patient's status. Osteopenia: Consider a repeat DEXA in 2-3 years to reassess this patient's status, or if there is a new clinical indication. Normal: Consider a repeat DEXA in 5 years or sooner, or if there is a new clinical indication. All treatment decisions require clinical judgment and consideration of individual patient factors, including patient preferences, comorbidities, previous drug use, risk factors not captured in the FRAX model (e.g., frailty, falls, vitamin D deficiency, increased bone turnover, interval significant decline in bone density ) and possible under- or over-estimation of fracture risk by FRAX. In addition, the NOF Guide recommends that FDA-approved medical therapies be considered in postmenopausal women and men age >= 50 years with a: * Hip or vertebral (clinical or morphometric) fracture * T-score of <=-2.5 at the spine or hip * Ten-year fracture probability by FRAX of >= 3% for hip fracture or >=20% for major osteoporotic fracture. Dictated by: Rigoberto Cruz M.D. on 11/09/2024 at 12:15 Approved by: Rigoberto Cruz M.D. on 11/09/2024 at 12:15
== END ==
LOC: RAD 10:08
PROVIDERS: Family Provider Family Medicine; PCP Family Medicine; Referring Provider Family Medicine; Visit Provider Family Medicine
DX: Z00.00 Encounter for general adult medical examination without abnormal findings (principal); M85.852 Other specified disorders of bone density and structure, left thigh; Z78.0 Asymptomatic menopausal state; I10 Essential (primary) hypertension; E78.00 Pure hypercholesterolemia, unspecified
CPT/HCPCS: 77080